=== PATIENT | female | born 1990 | race American Indian/Alaskan Native ===

== ENCOUNTER 2017-10-01 14:36 | Outpatient (CLI) | payer OTHER ==
--- NOTE | 2017-10-01 15:11 | XRay Report ---
CHEST 2 VIEWS INDICATION: Pneumothorax, unspecified. COMPARISON: None similar. FINDINGS: PA and lateral chest radiographs demonstrate normal cardiomediastinal silhouette. Clear lungs. Intact bones. Right nipple ornament. CONCLUSION: No acute disease in the chest. Thank you for the opportunity to participate in this patient's care.
--- NOTE | 2017-10-01 15:11 | XRay Report ---
RIGHT SHOULDER RADIOGRAPHS INDICATION: Pneumothorax, unspecified. COMPARISON: None similar at this institution. FINDINGS: Frontal and Y views of the right shoulder, 3 projections demonstrate normal humeral head contour, well positioned against the glenoid. Normal acromioclavicular joint. Preserved scapular contour. Normal visualized soft tissues, right ribs and lung. CONCLUSION: No acute right shoulder radiographic abnormality, as described. Thank you for the opportunity to participate in this patient's care.
== END 2017-10-01 14:37 | disposition home or self-care (01) ==
LOC: XRAY 14:36
DX: J93.9 Pneumothorax, unspecified (principal)
CPT/HCPCS: 71046

== ENCOUNTER 2018-11-08 09:30 | Emergency (ER) | payer SELFPAY ==
[2018-11-08 09:40] VITALS: BP 114/77
[2018-11-08 10:10] LABS: Basophils % (Auto) 0.7 % (0.0-1.8); Eosinophils # (Auto) 0.1 K/mm3 (0.0-0.4); Eosinophils % (Auto) 1.7 % (0.0-4.3); Hematocrit 37.4 % (30.3-42.9); Hemoglobin 12.2 gm/dl (10.1-14.3); Lymphocytes # (Auto) 2.1 K/mm3 (1.2-5.4); Lymphocytes % (Auto) 38.3 % (13.4-35.0); Mean Corpuscular HGB Conc 33 % (30-34); Mean Corpuscular Volume 86 fl (79-97); Monocytes # (Auto) 0.6 K/mm3 (0.0-0.8); Monocytes % (Auto) 11.2 % (0.0-7.3); Platelet Count 238 K/mm3 (140-440); Red Blood Count 4.34 M/mm3 (3.65-5.03); Red Cell Distribution Width 15.3 % (13.2-15.2)
--- NOTE | 2018-11-08 10:12 | Emergency Department Report ---
HPI - General Chief Complaint: Abdominal Pain Time Seen by Provider: 11/08/18 10:01 - HPI HPI: Pt is a pleasant 28-year-old who comes to the ER complaining of difficulty urinating and low back pain for one week. She states that she caught on Glucotrol and it concerned her when she saw so she came to the ER for evaluation. She has otherwise been not had sex with several years and she is concerned she is . She does have vaginal discharge or bleeding. Patient has no medical problems other than a previous pneumothorax associated with trauma. Mother and Father are alive and well. rx none pmh pneumothorax p trauma psh none ED Past Medical Hx - Past Medical History Previous Medical History?: No - Surgical History Past Surgical History?: Yes Additional Surgical History: collapsed lung - Social History Smoking Status: Light Tobacco Smoker Substance Use Type: Marijuana - Medications Home Medications: Home Medications Medication Instructions Recorded Confirmed Last Taken Type Ondansetron [Zofran Odt] 4 mg PO Q8HR PRN #12 tab.rapdis 11/08/18 Unknown Rx Sulfamethoxazole/Trimethoprim 1 each PO BID #6 tablet 11/08/18 Unknown Rx [Bactrim DS TAB] ED Review of Systems ROS: Stated complaint: FLANK PAIN/VOMITING Other details as noted in HPI Comment: All other systems reviewed and negative Physical Exam - Physical Exam Vital Signs: Vital Signs 11/08/18 09:37 Temperature 98.2 F Pulse Rate 104 H Respiratory 18 Rate Blood Pressure 114/77 [Left] O2 Sat by Pulse 99 Oximetry Physical Exam: WDWN patient in NAD VS per RN flow sheet Alert and oriented to person, place and time. S1-S2. No S3 or S4. No systolic or diastolic murmur. No JVD. No pitting edema. Lungs clear to auscultation bilaterally anteriorly and posteriorly. Abdomen soft nontender bowel sounds x4 no CVA tenderness no spine tenderness Moves all extremities well. Mood and affect appropriate. ED Course Vital Signs 11/08/18 09:37 Temperature 98.2 F Pulse Rate 104 H Respiratory 18 Rate Blood Pressure 114/77 [Left] O2 Sat by Pulse 99 Oximetry ED Medical Decision Making - Lab Data Result diagrams: 11/08/18 09:56 11/08/18 09:56 - Medical Decision Making Lab Results 11/08/18 11/08/18 11/08/18 Range/Units 09:56 09:56 10:32 WBC 5.4 (4.5-11.0) K/mm3 RBC 4.34 (3.65-5.03) M/mm3 Hgb 12.2 (10.1-14.3) gm/dl Hct 37.4 (30.3-42.9) % MCV 86 (79-97) fl MCH 28 (28-32) pg MCHC 33 (30-34) % RDW 15.3 H (13.2-15.2) % Plt Count 238 (140-440) K/mm3 Lymph % (Auto) 38.3 H (13.4-35.0) % [place] % (Auto) 11.2 H (0.0-7.3) % Eos % (Auto) 1.7 (0.0-4.3) % Baso % (Auto) 0.7 (0.0-1.8) % Lymph # 2.1 (1.2-5.4) K/mm3 [place] # 0.6 (0.0-0.8) K/mm3 Eos # 0.1 (0.0-0.4) K/mm3 Baso # 0.0 (0.0-0.1) K/mm3 Seg Neutrophils % 48.1 (40.0-70.0) % Seg Neutrophils # 2.6 (1.8-7.7) K/mm3 Sodium 139 (137-145) mmol/L Potassium 3.7 (3.6-5.0) mmol/L Chloride 101.6 (98-107) mmol/L Carbon Dioxide 26 (22-30) mmol/L Anion Gap 15 mmol/L BUN 14 (7-17) mg/dL Creatinine 0.7 (0.7-1.2) mg/dL Estimated GFR > 60 ml/min BUN/Creatinine Ratio 20 % Glucose 104 H (65-100) mg/dL Calcium 8.6 (8.4-10.2) mg/dL Total Bilirubin 0.20 (0.1-1.2) mg/dL AST 14 (5-40) units/L ALT 10 (7-56) units/L Alkaline Phosphatase 51 (35-129) units/L Total Protein 7.1 (6.3-8.2) g/dL Albumin 4.1 (3.9-5) g/dL Albumin/Globulin Ratio 1.4 % Lipase 30 (13-60) units/L Urine Color Yellow (Yellow) Urine Turbidity Slightly-cloudy (Clear) Urine pH 5.0 (5.0-7.0) Ur Specific Alpha 1.030 (1.003-1.030) Urine Protein <15 mg/dl (Negative) mg/dL Urine Glucose (UA) Neg (Negative) mg/dL Urine Ketones Neg (Negative) mg/dL Urine Blood Neg (Negative) Urine Nitrite Neg (Negative) Ur Reducing Substances Not Reportable Urine Bilirubin Neg (Negative) Urine Ictotest Not Reportable Urine Urobilinogen < 2.0 (<2.0) mg/dL Ur Leukocyte Esterase Sm (Negative) Urine WBC (Auto) 3.0 (0.0-6.0) /HPF Urine RBC (Auto) 3.0 (0.0-6.0) /HPF U Epithel Cells (Auto) 12.0 (0-13.0) /HPF Urine Mucus 3+ /HPF Urine HCG, Qual Negative (Negative) Vital Signs 11/08/18 09:37 Temperature 98.2 F Pulse Rate 104 H Respiratory 18 Rate Blood Pressure 114/77 [Left] O2 Sat by Pulse 99 Oximetry ua noted labs noted pt taking PO given complaints of dysuria and tr leuk will tx for uti and have her follow up with pcp to be sure this resolved. she has been encouraged to drink a lot of juan c er and hydrate well. dc home with dc plan of care. Critical care attestation.: If time is entered above; I have spent that time in minutes in the direct care of this critically ill patient, excluding procedure time. ED Disposition Clinical Impression: Dysuria Disposition: DC-01 TO HOME OR SELFCARE Is pt being admited?: No Does the pt Need Aspirin: No Condition: Stable Instructions: Urinary Tract Infection in Women (ED) Additional Instructions: DIET TOLERATED MEDS ORDERED TODAY IN ER FOLLOW INSTRUCTIONS ON THE BOTTLE FOLLOW UP PCP WITHIN 48 HOURS TO ENSURE YOU ARE GETTING BETTER ACTIVITY TOLERATED MOTRIN OR TYLENOL FOR PAIN OR FEVER RETURN TO THE ER FOR WORSENING SYMPTOMS NOT RELIEVED BY YOUR MEDICATIONS. DRINK A LOT OF WATER!! Prescriptions: Sulfamethoxazole/Trimethoprim [Bactrim DS TAB] 1 each PO BID #6 tablet Ondansetron [Zofran Odt] 4 mg PO Q8HR PRN #12 tab.rapdis PRN Reason: Nausea Referrals: CHIKIS KNIGHT MD [Primary Care Provider] - 3-5 Days Forms: Work/School Release Form(ED) Time of Disposition: 11:07
[2018-11-08 10:28] LABS: Alanine Aminotransferase 10 units/L (7-56); Albumin 4.1 g/dL (3.9-5); BUN/Creatinine Ratio 20; Blood Urea Nitrogen 14 mg/dL (7-17); Calcium 8.6 mg/dL (8.4-10.2); Hemolysis Index 11
[2018-11-08 11:00] LABS: Bilirubin,Urine NEG (Negative); Blood,Urine NEG (Negative); Color,Urine Yellow (Yellow); HCG Qualitative,Urine Negative (Negative); Mucus,Urine 3+ /HPF; Protein,Urine <15 mg/dL mg/dL (Negative); Urobilinogen,Urine < 2.0 mg/dL (<2.0)
[2018-11-08] MEDS ORDERED: LIDOCAINE VISCOUS 2% PO ONE (11:05)
[2018-11-08] MEDS ORDERED: ALUM-MAG HYDROX-SIMETH 200-200-20MG/5ML PO ONE (11:05)
== END 2018-11-08 11:25 | disposition home or self-care (01) ==
LOC: ED 09:30
DX: M54.5 Low back pain (principal); R30.0 Dysuria; F17.200 Nicotine dependence, unspecified, uncomplicated; F12.10 Cannabis abuse, uncomplicated; Z91.013 Allergy to seafood
CPT/HCPCS: 36415; 80053; 81001; 81025; 83690; 85025

== ENCOUNTER 2018-11-25 10:06 | Inpatient (IN) | payer SELFPAY ==
[2018-11-25] MEDS ORDERED: DECADRON PO ONE (10:45)
--- NOTE | 2018-11-25 10:50 | Emergency Department Report ---
HPI - General Chief Complaint: Upper Respiratory Infection Time Seen by Provider: 11/25/18 10:37 - HPI HPI: 28-year-old -[place] female presents to the emergency department with a four-day history of a dry cough. She says that over the past few nights she has been waking up short of breath with cold sweats. Last night she started having some right upper chest discomfort that worsens with breathing. She has tried some ibuprofen for her symptoms. She denies any fever, chills, nausea, vomiting, back pain or diaphoresis. She has a past medical history of a previous right-sided collapsed lung. No recent travel or sick contacts at home. She does not have a primary care physician. ED Past Medical Hx - Past Medical History Previous Medical History?: No - Surgical History Additional Surgical History: collapsed lung - Social History Smoking Status: Smoker, Current Status Unknown Substance Use Type: Alcohol, Marijuana - Medications Home Medications: Home Medications Medication Instructions Recorded Confirmed Last Taken Type Ondansetron [Zofran Odt] 4 mg PO Q8HR PRN #12 tab.rapdis 11/08/18 Unknown Rx Sulfamethoxazole/Trimethoprim 1 each PO BID #6 tablet 11/08/18 Unknown Rx [Bactrim DS TAB] ED Review of Systems ROS: Stated complaint: SOB/CHEST PAIN/COUGH Other details as noted in HPI Comment: All other systems reviewed and negative Constitutional: denies: chills, fever Eyes: denies: eye pain, vision change ENT: denies: ear pain, throat pain Respiratory: cough, shortness of breath, wheezing Cardiovascular: chest pain Gastrointestinal: denies: abdominal pain, vomiting Genitourinary: denies: dysuria, discharge Musculoskeletal: denies: back pain, arthralgia Skin: denies: rash, lesions Neurological: denies: headache, weakness Physical Exam - Physical Exam Vital Signs: Vital Signs 11/25/18 10:22 Temperature 98.6 F Pulse Rate 78 Respiratory 20 Rate Blood Pressure 129/80 O2 Sat by Pulse 99 Oximetry Physical Exam: GENERAL: The patient is well-developed well-nourished. HENT: Normocephalic. Atraumatic. Patient has moist mucous membranes. EYES: Extraocular motions are intact. Pupils equal reactive to light bilaterally. NECK: Supple. Trachea is midline. CHEST/LUNGS: Decreased lung sounds heard on the right side. An occasional dry cough heard during examination. No tachypnea or accessory muscle use. There is no respiratory distress noted. There is some reproducible right upper chest pain to palpation. No crepitus or deformity. HEART/CARDIOVASCULAR: Regular. There is no tachycardia. There is no murmur. ABDOMEN: Abdomen is soft, nontender. Patient has normal bowel sounds. There is no abdominal distention. SKIN: Skin is warm and dry. NEURO: The patient is awake, alert, and oriented. The patient is cooperative. The patient has no focal neurologic deficits. The patient has normal speech. MUSCULOSKELETAL: There is no tenderness or deformity. There is no evidence of acute injury. ED Course Vital Signs 11/25/18 10:22 Temperature 98.6 F Pulse Rate 78 Respiratory 20 Rate Blood Pressure 129/80 O2 Sat by Pulse 99 Oximetry ED Medical Decision Making - Radiology Data Radiology results: image reviewed interpreted by me: Chest x-ray shows a moderate right-sided pneumothorax without tension - Medical Decision Making Patient presented with a few days of waking up at night with shortness of breath and a dry cough and recently has started to develop some right-sided chest pains. A chest x-ray was done and came back showing a moderate right-sided pneumothorax without tension. The patient will be moved over to the main emergency Department side for chest tube placement and any other procedures and will most likely require admission. - Differential Diagnosis pneumothorax, bronchitis, pneumonia Critical Care Time: No Critical care attestation.: If time is entered above; I have spent that time in minutes in the direct care of this critically ill patient, excluding procedure time. ED Disposition Clinical Impression: Pneumothorax on right Disposition: -09 OP ADMIT IP TO THIS HOSP Is pt being admited?: Yes Condition: Stable Time of Disposition: 11:31
--- NOTE | 2018-11-25 11:26 | XRay Report ---
CHEST 2 VIEWS INDICATION / CLINICAL INFORMATION: cough. COMPARISON: None available. FINDINGS: SUPPORT DEVICES: None. HEART / MEDIASTINUM: No significant abnormality. LUNGS / PLEURA: There is a moderate right pneumothorax. There is mild volume loss in the right lung. There is no significant mediastinal shift. The left lung appears clear. ADDITIONAL FINDINGS: No significant additional findings. IMPRESSION: 1. Moderate right pneumothorax without radiographic evidence of tension. CRITICAL RESULT: Time of Discovery: 10:17 AM Time of Communication: 10:19 AM Licensed Practitioner Receiving Report: Dr. Epps Read Back Performed: Yes. Signer Name: Graham Simpson MD Signed: 11/25/2018 11:21 AM Workstation Name: [id number]
[2018-11-25] MEDS ORDERED: XYLOCAINE 1%/ EPI 1:100,000 INFILTRATI ONE (12:06)
[2018-11-25] MEDS ORDERED: KETALAR IV ONE (12:06)
--- NOTE | 2018-11-25 12:54 | Emergency Department Report ---
ED General Adult HPI - General Chief complaint: Upper Respiratory Infection Stated complaint: SOB/CHEST PAIN/COUGH Time Seen by Provider: 11/25/18 10:37 Source: patient Mode of arrival: Ambulatory Limitations: No Limitations - History of Present Illness Initial comments: Patient is a 28-year-old female who presents with shortness of breath has been going on for last couple days. Patient was transferred over to my care due to her having a right-sided spontaneous pneumothorax. Patient states that her shortness of breath is moderate is worse with exertion and nothing makes it better. - Related Data Previous Rx's Medication Instructions Recorded Last Taken Type Ondansetron [Zofran Odt] 4 mg PO Q8HR PRN #12 tab.rapdis 11/08/18 Unknown Rx Sulfamethoxazole/Trimethoprim 1 each PO BID #6 tablet 11/08/18 Unknown Rx [Bactrim DS TAB] Allergies Allergy/AdvReac Type Severity Reaction Status Date / Time clams Allergy Anaphylaxis Verified 11/25/18 14:30 mussels Allergy Anaphylaxis Verified 11/25/18 14:30 ED Review of Systems ROS: Stated complaint: SOB/CHEST PAIN/COUGH Other details as noted in HPI Constitutional: denies: chills, fever Eyes: denies: eye pain, vision change ENT: denies: ear pain, throat pain Respiratory: cough, shortness of breath, wheezing Cardiovascular: chest pain Gastrointestinal: denies: abdominal pain, vomiting Genitourinary: denies: dysuria, discharge Musculoskeletal: denies: back pain, arthralgia Skin: denies: rash, lesions Neurological: denies: headache, weakness ED Past Medical Hx - Past Medical History Previous Medical History?: No - Surgical History Additional Surgical History: collapsed lung - Social History Smoking Status: Smoker, Current Status Unknown Substance Use Type: Alcohol, Marijuana - Medications Home Medications: Home Medications Medication Instructions Recorded Confirmed Last Taken Type Ondansetron [Zofran Odt] 4 mg PO Q8HR PRN #12 tab.rapdis 11/08/18 Unknown Rx Sulfamethoxazole/Trimethoprim 1 each PO BID #6 tablet 11/08/18 Unknown Rx [Bactrim DS TAB] ED Physical Exam - General Limitations: No Limitations General appearance: alert, in no apparent distress - Head Head exam: Present: atraumatic, normocephalic - Eye Eye exam: Present: normal appearance - ENT ENT exam: Present: mucous membranes moist - Neck Neck exam: Present: normal inspection - Respiratory Respiratory exam: Present: other (diminshed on right side ). Absent: respiratory distress - Cardiovascular Cardiovascular Exam: Present: regular rate, normal rhythm. Absent: systolic mu rmur, diastolic murmur, rubs, gallop - GI/Abdominal GI/Abdominal exam: Present: soft, normal bowel sounds - Extremities Exam Extremities exam: Present: normal inspection - Back Exam Back exam: Present: normal inspection - Neurological Exam Neurological exam: Present: alert, oriented X3 - Psychiatric Psychiatric exam: Present: normal affect, normal mood - Skin Skin exam: Present: warm, dry, intact, normal color. Absent: rash ED Course Vital Signs 11/25/18 11/25/18 11/25/18 10:22 12:36 13:36 Temperature 98.6 F Pulse Rate 78 74 74 Pulse Rate [Pre -Procedure] Respiratory 20 17 17 Rate Respiratory Rate [Pre- Procedure] Blood Pressure 129/80 Blood Pressure [Pre-Procedure] Blood Pressure 124/63 122/70 [Right] O2 Sat by Pulse 99 100 100 Oximetry O2 Sat by Pulse Oximetry [Pre- Procedure] 11/25/18 11/25/18 11/25/18 14:11 14:20 14:28 Temperature Pulse Rate 60 99 H Pulse Rate [Pre 74 -Procedure] Respiratory 17 26 H Rate Respiratory 17 Rate [Pre- Procedure] Blood Pressure Blood Pressure 142/66 [Pre-Procedure] Blood Pressure 133/90 135/85 [Right] O2 Sat by Pulse 99 100 Oximetry O2 Sat by Pulse 99 Oximetry [Pre- Procedure] - Chest Tube Chest Tube Location: fifth interspace Size of Pashto Tube (cm): 9 Chest Tube Procedure: sterile drapes applied Anesthesia: 1% Lidocaine w/ Epi Volume Anesthetic (ccs): 20 Flannery of Air Dickinson: Yes Number of Attempts: 2 Tube Drainage: see nurses notes Tube Sutured to Skin: Yes Post Procedure CXR?: Yes - Moderate Sedation Indications: other (chest tube) ASA Class: I Mallampati Airway Score: 1 Time of Last PO Intake: 00:00 Ketamine: IV Ketamine Dose: 130 Complications: none Interventions: oxygen applied Patient Tolerated Procedure: well ED Medical Decision Making - Lab Data Result diagrams: 11/25/18 13:17 11/25/18 12:48 Lab Results 11/25/18 11/25/18 11/25/18 Range/Units 12:48 12:48 13:17 WBC 7.0 (4.5-11.0) K/mm3 RBC 4.09 (3.65-5.03) M/mm3 Hgb 11.6 (10.1-14.3) gm/dl Hct 35.3 (30.3-42.9) % MCV 86 (79-97) fl MCH 28 (28-32) pg MCHC 33 (30-34) % RDW 15.7 H (13.2-15.2) % Plt Count 187 (140-440) K/mm3 Lymph % (Auto) 21.2 (13.4-35.0) % [place] % (Auto) 9.9 H (0.0-7.3) % Eos % (Auto) 0.5 (0.0-4.3) % Baso % (Auto) 0.3 (0.0-1.8) % Lymph # 1.5 (1.2-5.4) K/mm3 [place] # 0.7 (0.0-0.8) K/mm3 Eos # 0.0 (0.0-0.4) K/mm3 Baso # 0.0 (0.0-0.1) K/mm3 Seg Neutrophils % 68.1 (40.0-70.0) % Seg Neutrophils # 4.8 (1.8-7.7) K/mm3 PT 12.6 (12.2-14.9) Sec. INR 0.97 (0.87-1.13) APTT 23.5 L (24.2-36.6) Sec. Sodium 138 (137-145) mmol/L Potassium 3.6 (3.6-5.0) mmol/L Chloride 104.6 (98-107) mmol/L Carbon Dioxide 19 L (22-30) mmol/L Anion Gap 18 mmol/L BUN 10 (7-17) mg/dL Creatinine 0.7 (0.7-1.2) mg/dL Estimated GFR > 60 ml/min BUN/Creatinine Ratio 14 % Glucose 86 (65-100) mg/dL Calcium 8.9 (8.4-10.2) mg/dL - Radiology Data Radiology results: report reviewed, image reviewed Chest x-ray: Shows moderate right-sided pneumothorax Chest x-ray after chest tube placement: Shows well aerated lung and Heimlich valve chest tube was small apical right pneumothorax - Medical Decision Making Chief Medical diagnosis: Pneumothorax Branch medical diagnosis: Pulmonary bleb bronchospasm I will place chest tube PROCEDURAL sedation BLOOD work and I will admit the patient to the hospitalist service. Discussed plan with patient and patient agrees with plan. Critical care attestation.: If time is entered above; I have spent that time in minutes in the direct care of this critically ill patient, excluding procedure time. ED Disposition Clinical Impression: Pneumothorax on right Disposition: DC-09 OP ADMIT IP TO THIS HOSP Is pt being admited?: Yes Does the pt Need Aspirin: No Condition: Stable Referrals: CHIKIS KNIGHT MD [Primary Care Provider] - 3-5 Days
[2018-11-25 13:11] LABS: INR 0.97 (0.87-1.13)
[2018-11-25 13:12] LABS: Partial Thromboplastin Time 23.5 Sec. (24.2-36.6)
[2018-11-25 13:14] LABS: BUN/Creatinine Ratio 14; Blood Urea Nitrogen 10 mg/dL (7-17); Calcium 8.9 mg/dL (8.4-10.2); Hemolysis Index 23
[2018-11-25 13:50] LABS: Basophils % (Auto) 0.3 % (0.0-1.8); Eosinophils % (Auto) 0.5 % (0.0-4.3); Hematocrit 35.3 % (30.3-42.9); Hemoglobin 11.6 gm/dl (10.1-14.3); Lymphocytes # (Auto) 1.5 K/mm3 (1.2-5.4); Lymphocytes % (Auto) 21.2 % (13.4-35.0); Mean Corpuscular HGB Conc 33 % (30-34); Mean Corpuscular Volume 86 fl (79-97); Monocytes # (Auto) 0.7 K/mm3 (0.0-0.8); Monocytes % (Auto) 9.9 % (0.0-7.3); Platelet Count 187 K/mm3 (140-440); Red Blood Count 4.09 M/mm3 (3.65-5.03); Red Cell Distribution Width 15.7 % (13.2-15.2)
[2018-11-25] MEDS ORDERED: ZOFRAN ONE ×2 (14:17→14:25)
[2018-11-25] MEDS ORDERED: MORPHINE ONE (14:25)
[2018-11-25] MEDS ORDERED: NACL 0.9% 1000 ML 1,000 ML ONE (14:25)
[2018-11-25] MEDS ORDERED: ATIVAN ONE (14:38)
--- NOTE | 2018-11-25 15:52 | XRay Report ---
CHEST 1 VIEW INDICATION: Shortness of breath, recent right chest tube placement. Follow-up right pneumothorax. COMPARISON: Earlier today at 1105 hours FINDINGS: Support devices: A right Heimlich chest tube has been inserted since the previous exam which terminat es at the level of the right hilum Heart: Within normal limits. Lungs/Pleura: A tiny residual right apical pneumothorax is identified measuring 4-5 mm in thickness. Otherwise the lungs are well-aerated. Minimal linear scarring or atelectasis in the right upper lobe is noted. Additional findings: None. IMPRESSION: 1. Right chest tube placement as described. Tiny right apical pneumothorax measuring 4-5 mm thickness . Signer Name: Hollis Jo Jr, MD Signed: 11/25/2018 3:48 PM Workstation Name: [id number]
[2018-11-25] MEDS ORDERED: NACL 0.9% 1000 ML 1,000 ML IV ONE (16:00)
[2018-11-25] MEDS ORDERED: TORADOL IV ONE (17:23)
[2018-11-25] MEDS ORDERED: BENADRYL IV ONE (17:33)
[2018-11-25] MEDS ORDERED: REGLAN IV ONE (17:33)
[2018-11-25] MEDS ORDERED: LOVENOX SUB-Q SCH (19:00)
[2018-11-25] MEDS: LOVENOX SUB-Q SCH (19:43)
[2018-11-25] MEDS ORDERED: ZOFRAN IV PRN (21:18)
[2018-11-25] MEDS ORDERED: SODIUM CHLORIDE FLUSH SYRINGE 10 ML IV PRN (21:18)
[2018-11-25] MEDS ORDERED: DILAUDID IV PRN (21:18)
--- NOTE | 2018-11-25 21:18 | History and Physical Report ---
History of Present Illness Date of examination: 11/25/18 Date of admission: 11/25/18 18:02 History of present illness: Patient is a 28-year-old female who presents with shortness of breath has been going on for last couple days. Patient was transferred over to my care due to her having a right-sided spontaneous pneumothorax. Patient states that her shortness of breath is moderate is worse with exertion and nothing makes it better. - Related Data Previous Rx's Medication Instructions Recorded Last Taken Type Ondansetron [Zofran Odt] 4 mg PO Q8HR PRN #12 tab.rapdis 11/08/18 Unknown Rx Sulfamethoxazole/Trimethoprim 1 each PO BID #6 tablet 11/08/18 Unknown Rx [Bactrim DS TAB] Allergies Allergy/AdvReac Type Severity Reaction Status Date / Time clams Allergy Anaphylaxis Verified 11/25/18 14:30 mussels Allergy Anaphylaxis Verified 11/25/18 14:30 ED Review of Systems ROS: Stated complaint: SOB/CHEST PAIN/COUGH Other details as noted in HPI Constitutional: denies: chills, fever Eyes: denies: eye pain, vision change ENT: denies: ear pain, throat pain Respiratory: cough, shortness of breath, wheezing Cardiovascular: chest pain Gastrointestinal: denies: abdominal pain, vomiting Genitourinary: denies: dysuria, discharge Musculoskeletal: denies: back pain, arthralgia Skin: denies: rash, lesions Neurological: denies: headache, weakness ED Past Medical Hx - Past Medical History Previous Medical History?: No - Surgical History Additional Surgical History: collapsed lung - Social History Smoking Status: Smoker, Current Status Unknown Substance Use Type: Alcohol, Marijuana - Medications Home Medications: Home Medications Medication Instructions Recorded Confirmed Last Taken Type Ondansetron [Zofran Odt] 4 mg PO Q8HR PRN #12 tab.rapdis 11/08/18 Unknown Rx Sulfamethoxazole/Trimethoprim 1 each PO BID #6 tablet 11/08/18 Unknown Rx [Bactrim DS TAB] Medications and Allergies Allergies Allergy/AdvReac Type Severity Reaction Status Date / Time clams Allergy Anaphylaxis Verified 11/25/18 14:30 mussels Allergy Anaphylaxis Verified 11/25/18 14:30 Home Medications Medication Instructions Recorded Confirmed Last Taken Type Ondansetron [Zofran Odt] 4 mg PO Q8HR PRN #12 tab.rapdis 11/08/18 Unknown Rx Sulfamethoxazole/Trimethoprim 1 each PO BID #6 tablet 11/08/18 Unknown Rx [Bactrim DS TAB] Active Meds: Active Medications Enoxaparin Sodium (Lovenox) 30 mg SUB-Q QDAY REBECCA Last Admin: 11/25/18 19:43 Dose: 30 mg Documented by: Exam - Constitutional Vitals: Temp Pulse Resp BP Pulse Ox 98.6 F 58 L 17 110/66 100 11/25/18 10:22 11/25/18 18:46 11/25/18 18:46 11/25/18 18:46 11/25/18 18:46 Results - Labs CBC & Chem 7: 11/25/18 13:17 11/25/18 12:48 Labs: Laboratory Last Values WBC 7.0 K/mm3 (4.5-11.0) 11/25/18 13:17 RBC 4.09 M/mm3 (3.65-5.03) 11/25/18 13:17 Hgb 11.6 gm/dl (10.1-14.3) 11/25/18 13:17 Hct 35.3 % (30.3-42.9) 11/25/18 13:17 MCV 86 fl (79-97) 11/25/18 13:17 MCH 28 pg (28-32) 11/25/18 13:17 MCHC 33 % (30-34) 11/25/18 13:17 RDW 15.7 % (13.2-15.2) H 11/25/18 13:17 Plt Count 187 K/mm3 (140-440) 11/25/18 13:17 Lymph % (Auto) 21.2 % (13.4-35.0) 11/25/18 13:17 [place] % (Auto) 9.9 % (0.0-7.3) H 11/25/18 13:17 Eos % (Auto) 0.5 % (0.0-4.3) 11/25/18 13:17 Baso % (Auto) 0.3 % (0.0-1.8) 11/25/18 13:17 Lymph # 1.5 K/mm3 (1.2-5.4) 11/25/18 13:17 [place] # 0.7 K/mm3 (0.0-0.8) 11/25/18 13:17 Eos # 0.0 K/mm3 (0.0-0.4) 11/25/18 13:17 Baso # 0.0 K/mm3 (0.0-0.1) 11/25/18 13:17 Seg Neutrophils % 68.1 % (40.0-70.0) 11/25/18 13:17 Seg Neutrophils # 4.8 K/mm3 (1.8-7.7) 11/25/18 13:17 PT 12.6 Sec. (12.2-14.9) 11/25/18 12:48 INR 0.97 (0.87-1.13) 11/25/18 12:48 APTT 23.5 Sec. (24.2-36.6) L 11/25/18 12:48 Sodium 138 mmol/L (137-145) 11/25/18 12:48 Potassium 3.6 mmol/L (3.6-5.0) 11/25/18 12:48 Chloride 104.6 mmol/L (98-107) 11/25/18 12:48 Carbon Dioxide 19 mmol/L (22-30) L 11/25/18 12:48 18 mmol/L 11/25/18 12:48 BUN 10 mg/dL (7-17) 11/25/18 12:48 0.7 mg/dL (0.7-1.2) 11/25/18 12:48 Estimated GFR > 60 ml/min 11/25/18 12:48 14 % 11/25/18 12:48 Glucose 86 mg/dL (65-100) 11/25/18 12:48 Calcium 8.9 mg/dL (8.4-10.2) 11/25/18 12:48
[2018-11-25] MEDS ORDERED: NACL 0.9% 1000 ML 1,000 ML IV SCH (22:00)
--- NOTE | 2018-11-25 23:06 | XRay Report ---
CHEST 1 VIEW 9:40 PM INDICATION / CLINICAL INFORMATION: Chest tube removal. COMPARISON: Earlier today at 3:17 PM. FINDINGS: SUPPORT DEVICES: The right pleural catheter has been removed. HEART / MEDIASTINUM: Unchanged. LUNGS / PLEURA: Subsegmental atelectasis in the right mid lung has cleared. A very tiny right apical pneumothorax is smaller. ADDITIONAL FINDINGS: No significant additional findings. IMPRESSION: Tiny right apical pneumothorax has decreased in size following right pleural catheter rem oval. Signer Name: Bulmaro Harkins MD Signed: 11/25/2018 11:02 PM Workstation Name: [id number]
[2018-11-25] MEDS: PEPCID PO SCH (23:10)
[2018-11-25] MEDS: SODIUM CHLORIDE FLUSH SYRINGE 10 ML IV SCH (23:10)
--- NOTE | 2018-11-26 03:38 | Event Note ---
Date: 11/25/18 See H/p inreports Rt Spontaneous Pneumothorax Second Episode Nicotine Dependence
--- NOTE | 2018-11-26 04:11 | History and Physical Report ---
CHIEF COMPLAINT: Shortness of breath for 2 days. HISTORY OF PRESENT ILLNESS: This is a 28-year-old female who presents to the Emergency Room with shortness of breath for last 2 days. The patient had a spontaneous pneumothorax a few months ago. Was treated at a different hospital. The patient is a smoker. The patient has a tendency to cough recurrently because of smoking and recurrent bronchitis. The patient was found to have spontaneous pneumothorax in the ER and the patient had a chest tube placed. No fever or chills. Cough nonproductive. PAST MEDICAL HISTORY: Spontaneous pneumothorax x 1 a few months ago. No hypertension, no diabetes. PAST SURGICAL HISTORY: Chest tube and collapsed lung on the right side secondary to spontaneous pneumothorax few months ago. SOCIAL HISTORY: Smokes over half a pack a day. Alcohol and marijuana on a regular basis. FAMILY HISTORY: Hypertension. REVIEW OF SYSTEMS: Significant for shortness of breath on minimal exertion and sometimes at rest. Otherwise, review of systems negative. PHYSICAL EXAMINATION: GENERAL: Young female, cooperative during examination. VITAL SIGNS: Blood pressure is 96/51, temperature is 98.3, pulse is 64, respiratory rate is 22. HEENT: Unremarkable. NECK: Supple, no lymphadenopathy, no thyromegaly. Accessory muscles of respiration are not prominent. LUNGS: Clear to auscultation and percussion. Decreased air entry on the right side. CARDIOVASCULAR: S1, S2 heard. No gallop, no murmur, no rub. Apical impulse in left fifth intercostal space and midclavicular line. ABDOMEN: Soft and benign. No hepatosplenomegaly, no guarding, no rigidity. Hernial orifices are normal. EXTREMITIES: Good pedal pulses. No pedal edema. CENTRAL NERVOUS SYSTEM: Alert and oriented x 4, nonfocal exam. LABORATORY DATA: CBC is normal. Electrolytes are normal. DIAGNOSTIC DATA: Chest x-ray shows some moderate right pneumothorax without radiographic evidence of tension pneumothorax. ASSESSMENT AND PLAN: 1. Spontaneous right pneumothorax. Chest tube was inserted. The patient is comfortable with the chest tube. The patient to be admitted for 48 hours observation and removal of chest tube depending on the resolution of the pneumothorax. Pulmonary consult requested. 2. Nicotine dependence. Nicoderm patch initiated. 3. Deep venous thrombosis prophylaxis, Lovenox 40 mg subcutaneous daily and GI prophylaxis. JOB# [id number] VSM/NTS MTDD
[2018-11-26 05:26] LABS: Albumin 3.6 g/dL (3.9-5); BUN/Creatinine Ratio 19; Blood Urea Nitrogen 13 mg/dL (7-17); Calcium 8.1 mg/dL (8.4-10.2); Hemolysis Index 2
[2018-11-26 05:36] LABS: Alanine Aminotransferase < 5 units/L (7-56)
[2018-11-26] MEDS: PERCOCET 5/325 PO PRN ×3 (06:00→21:29)
[2018-11-26] MEDS: LOVENOX SUB-Q SCH (09:03)
[2018-11-26] MEDS: SODIUM CHLORIDE FLUSH SYRINGE 10 ML IV SCH ×2 (09:04→21:34)
[2018-11-26] MEDS: PEPCID PO SCH ×2 (09:04→21:29)
[2018-11-26] MEDS: TYLENOL PO PRN (09:14)
--- NOTE | 2018-11-26 10:09 | XRay Report ---
CHEST 1 VIEW 9:40 AM INDICATION / CLINICAL INFORMATION: Follow-up pneumothorax. COMPARISON: Yesterday. FINDINGS: SUPPORT DEVICES: None. HEART / MEDIASTINUM: Borderline cardiomegaly. LUNGS / PLEURA: Low lung volumes without acute abnormality. Tiny right apical pneumothorax is no long er appreciated. ADDITIONAL FINDINGS: Right nipple piercing. IMPRESSION: Tiny right apical pneumothorax is no longer identified. Signer Name: Bulmaro Harkins MD Signed: 11/26/2018 10:05 AM Workstation Name: [id number]
--- NOTE | 2018-11-26 13:06 | Consultation ---
History of Present Illness Consult date: 11/26/18 Requesting physician: MARGI ABRAHAM Reason for consult: pneumothorax History of present illness: PULMONARY/CCM CONSULT NOTE (Full dictation # [id number]) Please see dictated notes for full details - get CT chest to r/o Apical blebs or significant cystic disease Medications and Allergies Allergies Allergy/AdvReac Type Severity Reaction Status Date / Time clams Allergy Anaphylaxis Verified 11/25/18 14:30 mussels Allergy Anaphylaxis Verified 11/25/18 14:30 Active Meds: Active Medications Acetaminophen (Tylenol) 650 mg PO Q4H PRN PRN Reason: Pain MILD(1-3)/Fever >100.5/LIVE Last Admin: 11/26/18 09:14 Dose: 650 mg Documented by: Enoxaparin Sodium (Lovenox) 30 mg SUB-Q QDAY [facility] Last Admin: 11/26/18 09:03 Dose: 30 mg Documented by: Famotidine (Pepcid) 20 mg PO BID [facility] Last Admin: 11/26/18 09:04 Dose: 20 mg Documented by: Hydromorphone HCl (Dilaudid) 0.5 mg IV Q3H PRN PRN Reason: Pain , Severe (7-10) Last Admin: 11/25/18 23:47 Dose: 0.5 mg Documented by: Sodium Chloride (Nacl 0.9% 1000 Ml) 1,000 mls @ 75 mls/hr IV DIRECT REBECCA Last Admin: 11/25/18 23:47 Dose: 75 mls/hr Documented by: Ondansetron HCl (Zofran) 4 mg IV Q8H PRN PRN Reason: Nausea And Vomiting Last Admin: 11/26/18 00:47 Dose: 4 mg Documented by: Oxycodone/Acetaminophen (Percocet 5/325) 1 tab PO Q6H PRN PRN Reason: Pain, Moderate (4-6) Last Admin: 11/26/18 06:00 Dose: 1 tab Documented by: Sodium Chloride (Sodium Chloride Flush Syringe 10 Ml) 10 ml IV BID [facility] Last Admin: 11/26/18 09:04 Dose: 10 ml Documented by: Sodium Chloride (Sodium Chloride Flush Syringe 10 Ml) 10 ml IV PRN PRN PRN Reason: LINE FLUSH Physical Examination Vital signs: Vital Signs Temp Pulse Resp BP Pulse Ox 98.6 F 78 20 129/80 99 07/05/19 10:22 11/25/18 10:22 11/25/18 10:22 11/25/18 10:22 11/25/18 10:22 Results - Laboratory Findings CBC and BMP: 11/25/18 13:17 11/26/18 04:24 PT/INR, D-dimer PT 12.6 Sec. (12.2-14.9) 11/25/18 12:48 INR 0.97 (0.87-1.13) 11/25/18 12:48 Abnormal lab findings: Abnormal Labs 11/25/18 11/25/18 11/25/18 12:48 12:48 13:17 RDW 15.7 H [place] % (Auto) 9.9 H APTT 23.5 L Carbon Dioxide 19 L Glucose Calcium ALT Albumin 11/26/18 04:24 RDW [place] % (Auto) APTT Carbon Dioxide Glucose 103 H Calcium 8.1 L ALT < 5 L Albumin 3.6 L
--- NOTE | 2018-11-26 13:08 | Progress Note ---
Assessment and Plan Assessment and plan: Spontaneous PTX. Pt had chest tube that was placed but inadvertently pulled out after admission. -F/U repeat CXR and await Pulm consultation Tobacco abuse. Pt will be counseled on cessation prior to d/c Marijuana use. Daily user History Interval history: Patient is a 28-year-old female who presented with shortness of breath has been going on for last couple days [employer]. Patient admitted with dx right-sided spontaneous pneumothorax. Hospitalist Physical - Constitutional Vitals: Temp Pulse Resp BP Pulse Ox 98.5 F 52 L 20 103/61 100 11/26/18 11:32 11/26/18 11:32 11/26/18 11:32 11/26/18 11:32 11/26/18 11:32 General appearance: Present: no acute distress, well-nourished - EENT Eyes: Present: PERRL, EOM intact ENT: hearing intact, clear oral mucosa, dentition normal - Neck Neck: Present: supple, normal ROM - Respiratory Respiratory effort: normal Respiratory: bilateral: CTA - Cardiovascular Rhythm: regular Heart Sounds: Present: S1 & S2. Absent: gallop, rub - Extremities Extremities: no ischemia, No edema, Full ROM - Abdominal General gastrointestinal: soft, non-tender, non-distended, normal bowel sounds - Integumentary Integumentary: Present: clear, warm, dry - Neurologic Neurologic: CNII-XII intact, moves all extremities Results - Labs CBC & Chem 7: 11/25/18 13:17 11/26/18 04:24 Labs: Laboratory Last Values WBC 7.0 K/mm3 (4.5-11.0) 11/25/18 13:17 RBC 4.09 M/mm3 (3.65-5.03) 11/25/18 13:17 Hgb 11.6 gm/dl (10.1-14.3) 11/25/18 13:17 Hct 35.3 % (30.3-42.9) 11/25/18 13:17 MCV 86 fl (79-97) 11/25/18 13:17 MCH 28 pg (28-32) 11/25/18 13:17 MCHC 33 % (30-34) 11/25/18 13:17 RDW 15.7 % (13.2-15.2) H 11/25/18 13:17 Plt Count 187 K/mm3 (140-440) 11/25/18 13:17 Lymph % (Auto) 21.2 % (13.4-35.0) 11/25/18 13:17 Ray % (Auto) 9.9 % (0.0-7.3) H 11/25/18 13:17 Eos % (Auto) 0.5 % (0.0-4.3) 11/25/18 13:17 Baso % (Auto) 0.3 % (0.0-1.8) 11/25/18 13:17 Lymph # 1.5 K/mm3 (1.2-5.4) 11/25/18 13:17 Ray # 0.7 K/mm3 (0.0-0.8) 11/25/18 13:17 Eos # 0.0 K/mm3 (0.0-0.4) 11/25/18 13:17 Baso # 0.0 K/mm3 (0.0-0.1) 11/25/18 13:17 Seg Neutrophils % 68.1 % (40.0-70.0) 11/25/18 13:17 Seg Neutrophils # 4.8 K/mm3 (1.8-7.7) 11/25/18 13:17 PT 12.6 Sec. (12.2-14.9) 11/25/18 12:48 INR 0.97 (0.87-1.13) 11/25/18 12:48 APTT 23.5 Sec. (24.2-36.6) L 11/25/18 12:48 Sodium 140 mmol/L (137-145) 11/26/18 04:24 Potassium 4.0 mmol/L (3.6-5.0) 11/26/18 04:24 Chloride 106.0 mmol/L (98-107) 11/26/18 04:24 Carbon Dioxide 24 mmol/L (22-30) 11/26/18 04:24 14 mmol/L 11/26/18 04:24 BUN 13 mg/dL (7-17) 11/26/18 04:24 0.7 mg/dL (0.7-1.2) 11/26/18 04:24 Estimated GFR > 60 ml/min 11/26/18 04:24 19 % 11/26/18 04:24 Glucose 103 mg/dL (65-100) H 11/26/18 04:24 4.7 % (4-6) 11/25/18 13:17 Calcium 8.1 mg/dL (8.4-10.2) L 11/26/18 04:24 0.40 mg/dL (0.1-1.2) 11/26/18 04:24 AST 12 units/L (5-40) 11/26/18 04:24 ALT < 5 units/L (7-56) L 11/26/18 04:24 47 units/L (35-129) 11/26/18 04:24 6.6 g/dL (6.3-8.2) 11/26/18 04:24 3.6 g/dL (3.9-5) L 11/26/18 04:24 1.2 % 11/26/18 04:24 Active Medications - Current Medications Current Medications: Generic Name Dose Route Start Last Admin Trade Name Freq PRN Reason Stop Dose Admin Acetaminophen 650 mg 11/25/18 21:18 11/26/18 09:14 Tylenol PO 650 mg Q4H PRN Administration Pain MILD(1-3)/Fever >100.5/LIVE Enoxaparin Sodium 30 mg 11/25/18 18:30 11/26/18 09:03 Lovenox SUB-Q 30 mg QDAY REBECCA Administration Famotidine 20 mg 11/25/18 22:00 11/26/18 09:04 Pepcid PO 20 mg BID REBECCA Administration Hydromorphone HCl 0.5 mg 11/25/18 21:18 11/25/18 23:47 Dilaudid IV 0.5 mg Q3H PRN Administration Pain , Severe (7-10) Sodium Chloride 1,000 mls @ 75 mls/hr 11/25/18 22:00 11/25/18 23:47 Nacl 0.9% 1000 Ml IV 75 mls/hr DIRECT REBECCA Administration Ondansetron HCl 4 mg 11/25/18 21:18 11/26/18 00:47 Zofran IV 4 mg Q8H PRN Administration Nausea And Vomiting Oxycodone/Acetaminophen 1 tab 11/25/18 21:18 11/26/18 06:00 Percocet 5/325 PO 1 tab Q6H PRN Administration Pain, Moderate (4-6) Sodium Chloride 10 ml 11/25/18 22:00 11/26/18 09:04 Sodium Chloride Flush Syringe 10 Ml IV 10 ml BID REBECCA Administration Sodium Chloride 10 ml 11/25/18 21:18 Sodium Chloride Flush Syringe 10 Ml IV PRN PRN LINE FLUSH
--- NOTE | 2018-11-26 17:13 | Cat Scan Report ---
CT chest without contrast INDICATION : Pneumothorax; Apical blebs or cystic disease. History of collapsed lung TECHNIQUE: Axial imaging performed through the chest without the use of intravenous contrast. All C T scans at this location are performed using CT dose reduction for ALARA by means of automated exposu re control. COMPARISON: Chest x-ray from earlier today FINDINGS: The heart and great vessels appear unremarkable with no pathologic mediastinal adenopathy. Limited imaging of the upper abdomen shows nothing acute. There are minimal degenerative changes in the spine with no acute osseous abnormality. There is mild motion artifact. In the right apex there is a tiny bleb versus residua of old pneumotho rax as seen on axial image 13 and sagittal image 93. The lungs are otherwise clear. IMPRESSION: Tiny bleb versus residual of old pneumothorax in the right apex as above. Otherwise clear lungs and normal heart size. Signer Name: Pola Llanos MD Signed: 11/26/2018 5:08 PM Workstation Name: [id number]
--- NOTE | 2018-11-27 00:43 | Consultation ---
CONSULTING PHYSICIAN: Dr. Braga. REASON FOR CONSULTATION: Pneumothorax spontaneous. CHIEF COMPLAINT AND HISTORY OF PRESENT ILLNESS: The patient is a 28-year-old -Portuguese female with past medical history significant for a prior episode of a collapsed lung. She said happen I believe about a couple of years ago. She was seen at [facility]. According to her, she does think she did have a CT scan of her chest also done at that time. She came into the Emergency Room after complaining about 4-5 days of a dry cough and increasing shortness of breath usually nocturnal. She started to have some chest pain, right upper chest pain on the day of presentation. Evaluation in the Emergency Room revealed a spontaneous pneumothorax on the right side. She denied any fevers, chills, nausea, vomiting or back pain. She denied any trauma to her chest. A chest tube was placed. Unfortunately, it got dislodged last night. A post-procedure chest x-ray showed only minimal apical pneumothorax at that time. We are asked to assist with management. When I stopped by to see her, she was resting. She was actually opened the room, walking around. She admits to about a 10+ pack year tobacco smoking history, states she started smoking when she was 10 years old. She denies any other past medical history. She denies a history of asthma. She does mention that she has never been , but really has not been trying to be. She denies any occupational exposures to any known pulmonary toxins. As far as she knows, there are no congenital diseases that run in the family. She does tell me that she has been told she has cysts everywhere. She was told she had a cyst under her jaw, a cyst in what appears to be the right upper quadrant region. The nature of this cyst is unclear. Really is much of the history of presentation as I have. PAST MEDICAL HISTORY: Spontaneous pneumothorax. PAST SURGICAL HISTORY: She had treatment for a collapsed lung in the past, not sure if it is the same lung. MEDICATIONS: She was on at the time I stopped by to see were reviewed, pertinent medications include the following: Tylenol 650 mg p.o. q. 4 hours p.r.n. mild pain, Lovenox 30 mg subcutaneous daily, Pepcid 20 mg p.o. b.i.d., Dilaudid 0.5 mg IV q. 3 hours p.r.n. severe pain, Zofran 4 mg IV q. 8 hours p.r.n. nausea and vomiting, Percocet 5/325 mg 1 tablet p.o. q 6 hours for moderate pain. ALLERGIES: CLAMS AND MUSSELS. Nature of this allergy is unknown. DIET: Well-built lady. Denies acute weight loss or gain in the preceding few weeks to months. FAMILY AND SOCIAL HISTORY: Lives in the community, has about a [id number] tobacco smoking history, continues to smoke. She also admits to intermittent alcohol and marijuana use. Denies illicit drug use or abuse, otherwise. FAMILY HISTORY: Otherwise noncontributory. There is a family history of asthma. REVIEW OF SYSTEMS: No loss of consciousness. No new onset seizures. No new onset focal weakness. No gross hematochezia or melena. No gross hematuria. She recently had an episode of dysuria about actually 2-3 weeks ago. No hematemesis. No hemoptysis. She denies heat or cold intolerance. Denies polydipsia or polyuria. Denies any history of seizures. Denies any history of any nodular type lesions on her body as may be related to the neurofibromatosis complex. Complete 13-system review of systems obtained. Pertinent positives and/or negatives as in body of history above, otherwise noncontributory. PHYSICAL EXAMINATION: VITAL SIGNS: At presentation, she was afebrile, temperature 98.6 degrees Fahrenheit, pulse of 78, respiratory rate of 20, blood pressure 129/80 and O2 sats were 99%, inspired oxygen concentration at that time was not recorded. When I stopped by to see her, O2 sats were 99% on room air. GENERAL: She is a well-built young -Portuguese female. Normocephalic, atraumatic, talking to me in full sentences without significant respiratory discomfort at rest. HEAD, EYES, EARS, NOSE AND THROAT: She is anicteric. No conjunctival erythema. Oropharynx is moist, Mallampati #2 oropharynx, no thyromegaly, no gross jugular venous distention, grossly, no palpable nodes in the supraclavicular or submandibular lymph node chains. I do not feel this cyst she mentions under her mandibles. LUNGS: Auscultation of both lung lisa reveals to be a good bilateral breath sounds in all zones of her lungs. HEART: Heart sounds 1 and 2 are heard, regular rate and rhythm at time of my evaluation. No rubs or murmurs. ABDOMEN: Soft, full, bowel sounds are positive, nontender. No palpable hepatosplenomegaly. EXTREMITIES: Without overt digital clubbing or cyanosis. No pedal edema. Pedal pulses are palpable and strong bilaterally. NEUROLOGIC: Pupils equal, round, about 4 mm, reactive to light. Extraocular muscle movements are intact. She moves all 4 extremities spontaneously. LABORATORY DATA: From my review are as follows: White cell count 7000, hemoglobin 11.6, hematocrit 35.3 and platelet count 187. No manual differential. INR is within normal limits. Serum sodium is 138, potassium 3.6, chloride 105, bicarbonate 19. It is now 24 today. BUN was 10, creatinine 0.7 at presentation with a glucose of 86. Liver function tests essentially within normal limits. No cultures. A chest x-ray was done, it shows an almost 50+ % right pneumothorax at presentation. Post-procedure, there is a complete reinflation of the lung, post-dislodgement of the chest tube yesterday showed a small apical pneumothorax. I have repeated a chest x-ray this morning and it does not show any progression of the pneumothorax; however, it does suggest small lung volumes. I should mention that there is also gross cardiomegaly on the most recent x-ray that I am seeing and this might be due to the fact that it is a lordotic film, all sorts with lung volumes and vascular crowding, but almost suggests a mild interstitial edema. ASSESSMENT AND PLAN: We have a young lady with recurrent pneumothorax if her history is to be believed, so far, there is no evidence of significant recurrence of pneumothorax after the chest tube was dislodged. I do think it is appropriate; however, to get a noncontrast CT scan, preferably with high resolution windows to evaluate for cystic lung disease, evaluate for apical blebs, rule out some cystic lung disease related to the neurofibromatosis complex or other cystic lung diseases that may explain the recurrent pneumothorax and may warrant her needing to see a cardiothoracic surgeon for possible intervention. Otherwise, I have strongly counseled over 10 minutes counseled tobacco abstinence. We will get a dedicated CT as mentioned. She is appropriately on GI and DVT prophylaxis. Flu and pneumonia vaccination will be addressed per protocol. Thank you very much for the consult. We will follow along. We will make further recommendations as picture progresses/becomes clearer. JOB# [id number] SARAHI/JOE SIERRA
[2018-11-27] MEDS: PERCOCET 5/325 PO PRN ×2 (05:10→13:20)
[2018-11-27] MEDS: PEPCID PO SCH (09:17)
[2018-11-27] MEDS: SODIUM CHLORIDE FLUSH SYRINGE 10 ML IV SCH (09:19)
[2018-11-27] MEDS: TYLENOL PO PRN ×2 (09:24→15:44)
[2018-11-27] MEDS ORDERED: LOVENOX SUB-Q SCH (10:00)
--- NOTE | 2018-11-27 11:41 | Progress Note ---
Assessment and Plan Assessment and plan: 28-year-old woman who presents to the hospital with cough and pleuritic chest pain Spontaneous PTX. Pt had chest tube that was placed but inadvertently pulled out after admission. 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 She was counseled on tobacco cessation greater than 10 minutes spent Preventative health counseling performed for 17 minutes Marijuana use. Daily user History Interval history: Review of systems Constitutional: No fevers, no malaise, no joint pains CVS: No chest pain, no orthopnea, no dyspnea on exertion, no pedal edema GI: No abdominal pain, no diarrhea, no vomiting, no constipation Respiratory: no wheezing, no coughing Hospitalist Physical - Physical exam Narrative exam: General.: Appears well, no distress, nontoxic HEENT: Moist mucous membranes, extraocular muscles intact, no lymphadenopathy Neck: supple Cardiac: S1-S2 heard Lungs: clear to auscultation bilaterally Abdomen: soft , nontender, nondistended, bowel sounds positive Extremities: no edema clubbing or cyanosis Skin: no rash or lesions Neurologic: no gross focal deficits Psych: calm, and cooperative - Constitutional Vitals: Temp Pulse Resp BP Pulse Ox 98.1 F 61 18 102/49 97 11/27/18 06:17 11/27/18 06:17 11/27/18 06:17 11/27/18 06:17 11/27/18 06:17 General appearance: Present: no acute distress, well-nourished Results - Labs CBC & Chem 7: 11/25/18 13:17 11/26/18 04:24 Labs: Laboratory Last Values WBC 7.0 K/mm3 (4.5-11.0) 11/25/18 13:17 RBC 4.09 M/mm3 (3.65-5.03) 11/25/18 13:17 Hgb 11.6 gm/dl (10.1-14.3) 11/25/18 13:17 Hct 35.3 % (30.3-42.9) 11/25/18 13:17 MCV 86 fl (79-97) 11/25/18 13:17 MCH 28 pg (28-32) 11/25/18 13:17 MCHC 33 % (30-34) 11/25/18 13:17 RDW 15.7 % (13.2-15.2) H 11/25/18 13:17 Plt Count 187 K/mm3 (140-440) 11/25/18 13:17 Lymph % (Auto) 21.2 % (13.4-35.0) 11/25/18 13:17 [place] % (Auto) 9.9 % (0.0-7.3) H 11/25/18 13:17 Eos % (Auto) 0.5 % (0.0-4.3) 11/25/18 13:17 Baso % (Auto) 0.3 % (0.0-1.8) 11/25/18 13:17 Lymph # 1.5 K/mm3 (1.2-5.4) 11/25/18 13:17 [place] # 0.7 K/mm3 (0.0-0.8) 11/25/18 13:17 Eos # 0.0 K/mm3 (0.0-0.4) 11/25/18 13:17 Baso # 0.0 K/mm3 (0.0-0.1) 11/25/18 13:17 Seg Neutrophils % 68.1 % (40.0-70.0) 11/25/18 13:17 Seg Neutrophils # 4.8 K/mm3 (1.8-7.7) 11/25/18 13:17 PT 12.6 Sec. (12.2-14.9) 11/25/18 12:48 INR 0.97 (0.87-1.13) 11/25/18 12:48 APTT 23.5 Sec. (24.2-36.6) L 11/25/18 12:48 Sodium 140 mmol/L (137-145) 11/26/18 04:24 Potassium 4.0 mmol/L (3.6-5.0) 11/26/18 04:24 Chloride 106.0 mmol/L (98-107) 11/26/18 04:24 Carbon Dioxide 24 mmol/L (22-30) 11/26/18 04:24 14 mmol/L 11/26/18 04:24 BUN 13 mg/dL (7-17) 11/26/18 04:24 0.7 mg/dL (0.7-1.2) 11/26/18 04:24 Estimated GFR > 60 ml/min 11/26/18 04:24 19 % 11/26/18 04:24 Glucose 103 mg/dL (65-100) H 11/26/18 04:24 4.7 % (4-6) 11/25/18 13:17 Calcium 8.1 mg/dL (8.4-10.2) L 11/26/18 04:24 0.40 mg/dL (0.1-1.2) 11/26/18 04:24 AST 12 units/L (5-40) 11/26/18 04:24 ALT < 5 units/L (7-56) L 11/26/18 04:24 47 units/L (35-129) 11/26/18 04:24 6.6 g/dL (6.3-8.2) 11/26/18 04:24 3.6 g/dL (3.9-5) L 11/26/18 04:24 1.2 % 11/26/18 04:24 Active Medications - Current Medications Current Medications: Generic Name Dose Route Start Last Admin Trade Name Freq PRN Reason Stop Dose Admin Acetaminophen 650 mg 11/25/18 21:18 11/27/18 09:24 Tylenol PO 650 mg Q4H PRN Administration Pain MILD(1-3)/Fever >100.5/LIVE Enoxaparin Sodium 30 mg 11/27/18 10:00 11/27/18 09:18 Lovenox SUB-Q 30 mg QDAY REBECCA Administration Famotidine 20 mg 11/25/18 22:00 11/27/18 09:17 Pepcid PO 20 mg BID REBECCA Administration Hydromorphone HCl 0.5 mg 11/25/18 21:18 11/25/18 23:47 Dilaudid IV 0.5 mg Q3H PRN Administration Pain , Severe (7-10) Sodium Chloride 1,000 mls @ 75 mls/hr 11/25/18 22:00 11/25/18 23:47 Nacl 0.9% 1000 Ml IV 75 mls/hr DIRECT REBECCA Administration Ondansetron HCl 4 mg 11/25/18 21:18 11/26/18 00:47 Zofran IV 4 mg Q8H PRN Administration Nausea And Vomiting Oxycodone/Acetaminophen 1 tab 11/25/18 21:18 11/27/18 05:10 Percocet 5/325 PO 1 tab Q6H PRN Administration Pain, Moderate (4-6) Sodium Chloride 10 ml 11/25/18 22:00 11/27/18 09:19 Sodium Chloride Flush Syringe 10 Ml IV 10 ml BID REBECCA Administration Sodium Chloride 10 ml 11/25/18 21:18 Sodium Chloride Flush Syringe 10 Ml IV PRN PRN LINE FLUSH
--- NOTE | 2018-11-27 11:43 | Discharge Summary ---
Providers - Providers Date of Admission: 11/25/18 18:02 Attending physician: MAIRA NAYLOR MD 11/25/18 21:18 Consult to Physician [CONS] Routine Comment: Consulting Provider: SHANE ARANGO Physician Instructions: Reason For Exam: right pneumothorax [facility] Condition: Stable Hospital course: 28-year-old woman who presents to the hospital with cough and pleuritic chest pain Spontaneous PTX. Pt had chest tube that was placed but inadvertently pulled out after admission. Now resolved, CT only shows tiny apical bleb, and resolution of pneumothorax, tentative discharge later today if deputy chief counsel is agreeable Tobacco abuse. She was counseled on tobacco cessation greater than 10 minutes spent Preventative health counseling performed for 17 minutes Marijuana use. Daily user Disposition: - TO HOME OR SELFCARE Time spent for discharge: 33 mins Core Measure Documentation - Palliative Care Palliative Care/ Comfort Measures: Not Applicable - Core Measures Any of the following diagnoses?: none Exam - Constitutional Vitals: Temp Pulse Resp BP Pulse Ox 98.1 F 61 18 102/49 97 11/27/18 06:17 11/27/18 06:17 11/27/18 06:17 11/27/18 06:17 11/27/18 06:17 General appearance: Present: no acute distress, well-nourished - EENT Eyes: Present: PERRL ENT: hearing intact, clear oral mucosa - Neck Neck: Present: supple, normal ROM - Respiratory Respiratory effort: normal Respiratory: bilateral: CTA - Cardiovascular Heart Sounds: Present: S1 & S2. Absent: rub, click - Extremities Extremities: pulses symmetrical, No edema Peripheral Pulses: within normal limits - Abdominal General gastrointestinal: Present: soft, non-tender, non-distended, normal bowel sounds Female genitourinary: Present: normal - Integumentary Integumentary: Present: clear, warm, dry - Musculoskeletal Musculoskeletal: gait normal, strength equal bilaterally - Psychiatric Psychiatric: appropriate mood/affect, intact judgment & insight - Neurologic Neurologic: CNII-XII intact, moves all extremities Plan [facility]Primary Care Provider] - 3-5 Days Prescriptions: Nicotine [Habitrol] 14 mg TD DAILY #30 patch
--- NOTE | 2018-11-27 14:03 | Progress Note ---
Assessment and Plan Spontaneous PTX Tobacco abuse - tobacco cessation counseled - outpatient pulmonary clinic f/up - discharge OK pulmonary-ron Subjective Date of service: 11/27/18 Principal diagnosis: Recurrent Spontaneous Pneumothorax Interval history: Patient is seen today for: Recurrent Spontaneous Pneumothorax Seen and examined at bedside; 24hour events reviewed; nursing and respiratory care staff consulted; no adverse overnight events reported to me; resting peacrfully in bed; CT chest reviewed; no obvious blebs (residual pneumothorax in right apex likely) and no significant cystic lung disease; No N/V/F/C; no chest pains Objective Vital Signs - 12hr 11/27/18 11/27/18 06:17 12:36 Temperature 98.1 F 98.5 F Pulse Rate 61 54 L Respiratory 18 18 Rate Blood Pressure 102/49 124/79 O2 Sat by Pulse 97 100 Oximetry Constitutional: no acute distress Eyes: non-icteric ENT: oropharynx moist Neck: supple, no lymphadenopathy, no JVD Effort: normal Ascultation: Bilateral: clear Percussion: Bilateral: not dull Cardiovascular: regular rate and rhythm Gastrointestinal: normoactive bowel sounds, soft, non-tender, non-distended Integumentary: normal Extremities: no cyanosis, no edema, pulses normal, no ischemia or petechiae Neurologic: normal mental status, non-focal exam, pupils equal and round, motor strength normal and Psychiatric: mood appropriate, affect normal CBC and BMP: 11/25/18 13:17 11/26/18 04:24 ABG, PT/INR, D-dimer: PT/INR, D-dimer PT 12.6 Sec. (12.2-14.9) 11/25/18 12:48 INR 0.97 (0.87-1.13) 11/25/18 12:48 Abnormal lab findings: Abnormal Labs 11/25/18 11/25/18 11/25/18 12:48 12:48 13:17 RDW 15.7 H [place] % (Auto) 9.9 H APTT 23.5 L Carbon Dioxide 19 L Glucose Calcium ALT Albumin 11/26/18 04:24 RDW [place] % (Auto) APTT Carbon Dioxide Glucose 103 H Calcium 8.1 L ALT < [address] scan - chest: image reviewed (no cystic disease or significant blebs) Allied health notes reviewed: nursing
[2018-11-27 16:36] VITALS: BP 133/70
== END 2018-11-27 17:37 | disposition home or self-care (01) | DRG 201 ==
LOC: ED 10:06 → 3A 18:02
PROVIDERS: ADMIT Internal Medicine; ATTEND Internal Medicine
PROC: 0W9930Z Drainage of Right Pleural Cavity with Drainage Device, Percutaneous Approach (ICD-10-PCS; principal; 2018-11-25)
DX: J93.83 Other pneumothorax (principal); F17.200 Nicotine dependence, unspecified, uncomplicated; F12.90 Cannabis use, unspecified, uncomplicated; Z71.6 Tobacco abuse counseling; Z82.49 Family history of ischemic heart disease and other diseases of the circulatory system
CPT/HCPCS: 36415; 71045; 71046; 71250; 80048; 80053; 83036; 85025; 85610; 85730; 96372; 96374; 96375; G0378; J1170; J1200; J1650; J1885; J2060; J2270; J2405; J2765; J7030; J8540

== ENCOUNTER 2018-12-01 11:20 | Emergency (ER) | payer OTHER ==
[2018-12-01 11:26] VITALS: BP 113/68
--- NOTE | 2018-12-01 11:26 | Event Note ---
ED Screening Note ED Screening Note: admitted on 11/25/18 had a spontaneous PTX had a chest tube placed pt states the chest tube was removed on the same day due to it falling out pt presents for suture removal where chest tube was placed pt is a smoker This initial assessment/diagnostic orders/clinical plan/treatment(s) is/are subject to change based on patients health status, clinical progression and re- assessment by fellow clinical providers in the ED. Further treatment and workup at subsequent clinical providers discretion. Patient/guardian urged not to elope from the ED as their condition may be serious if not clinically assessed and managed.
--- NOTE | 2018-12-01 11:46 | Emergency Department Report ---
Chief Complaint: Laceration/Recheck/Suture Stated Complaint: STITCHES REMOVED Time Seen by Provider: 12/01/18 11:24 - HPI History of Present Illness: admitted on 11/25/18 had a spontaneous PTX had a chest tube placed pt states the chest tube was removed on the same day due to it falling out pt presents for suture removal where chest tube was placed this is her second spontaneous PTX she denies any CP or SOB pt is a smoker - Exam Vital Signs: Vital Signs 12/01/18 11:24 Temperature 98.0 F Pulse Rate 61 Respiratory 18 Rate Blood Pressure 113/68 O2 Sat by Pulse 99 Oximetry MSE screening note: Focused history and physical exam performed. ED Medical Decision Making - Medical Decision Making vitals are normal, oxygen saturation is 99% pt is in no acute distress incision site is clean, dry, intact with sutures in place no signs of infection breath sounds are clear bilaterally, no w/r/r, no respiratory distress, no stridor pt is A&Ox [address] Andrea Berry regarding pt history and exam and advised for pt to follow up with pulmonology for suture removal and reevaluation since hospital discharge. pt was advised to please follow up with the wood carving machine operator that you saw in the hospital as soon as possible. pt was given the name, phone number, and address of who she saw in the hospital. advised to return to the emergency room immediately for any new or worsening symptoms. discussed with pt to return immediately for SOB, CP, or signs of infection. ED Disposition for MSE Clinical Impression: Pneumothorax on right, Encounter for removal of sutures Disposition: [facility] SCREENING EXAM-LEFT Is pt being admited?: No Does the pt Need Aspirin: No Condition: Stable Additional Instructions: please follow up with the wood carving machine operator that you saw in the hospital as soon as possible. return to the emergency room immediately for any new or worsening symptoms. [facility] [Primary Care Provider] - 3-5 Days ANGELICA AN MD [Staff Physician] - [facility] Time of Disposition: 11:48 Print Language: TELUGU
== END 2018-12-01 12:13 | disposition left against medical advice (07) ==
LOC: ED 11:20
DX: J93.9 Pneumothorax, unspecified (principal); Z91.013 Allergy to seafood
CPT/HCPCS: 99282

== ENCOUNTER 2019-02-14 20:02 | Inpatient (IN) | payer OTHER, SELFPAY ==
--- NOTE | 2019-02-14 20:24 | Event Note ---
ED Screening Note Date of service: 02/14/19 Time: 20:19 ED Screening Note: 28 y o female presents to ED sob worsening states last time was told 50 percent of her lungs collapsed This initial assessment/diagnostic orders/clinical plan/treatment(s) is/are subject to change based on patients health status, clinical progression and re- assessment by fellow clinical providers in the ED. Further treatment and workup at subsequent clinical providers discretion. Patient/guardian urged not to elope from the ED as their condition may be serious if not clinically assessed and managed. Initial orders include: cxr
--- NOTE | 2019-02-14 21:18 | XRay Report ---
CHEST 2 VIEWS INDICATION / CLINICAL INFORMATION: Dyspnea. COMPARISON: 2 views of the chest from 02/09/2019. FINDINGS: SUPPORT DEVICES: None. HEART / MEDIASTINUM: No significant abnormality. LUNGS / PLEURA: The previously seen large right pneumothorax has increased in size with associated at electasis. The left lung is clear. No significant pleural effusion. ADDITIONAL FINDINGS: No significant additional findings. IMPRESSION: Interval increase in size of the previously described large right pneumothorax. Signer Name: Patrick Ramirez MD Signed: 02/14/2019 9:13 PM Workstation Name: [id number]
[2019-02-14 21:19] LABS: Basophils % (Auto) 0.4 % (0.0-1.8); Eosinophils # (Auto) 0.1 K/mm3 (0.0-0.4); Eosinophils % (Auto) 1.1 % (0.0-4.3); Hematocrit 38.9 % (30.3-42.9); Hemoglobin 12.4 gm/dl (10.1-14.3); Lymphocytes # (Auto) 2.5 K/mm3 (1.2-5.4); Lymphocytes % (Auto) 42.6 % (13.4-35.0); Mean Corpuscular HGB Conc 32 % (30-34); Mean Corpuscular Volume 86 fl (79-97); Monocytes # (Auto) 0.6 K/mm3 (0.0-0.8); Monocytes % (Auto) 9.7 % (0.0-7.3); Platelet Count 229 K/mm3 (140-440); Red Blood Count 4.52 M/mm3 (3.65-5.03)
[2019-02-14 21:37] LABS: BUN/Creatinine Ratio 16; Blood Urea Nitrogen 13 mg/dL (7-17); Hemolysis Index 3
--- NOTE | 2019-02-14 21:38 | Emergency Department Report ---
ED Shortness of Breath HPI - General Chief Complaint: Dyspnea/Respdistress Stated Complaint: RYAN Time Seen by Provider: 02/14/19 20:19 Source: patient Mode of arrival: Ambulatory Limitations: No Limitations - History of Present Illness Initial Comments: 28-year-old female with history of recurrent spontaneous pneumothoraces presents to ED with right-sided chest pain and shortness of breath. Patient was seen here one week ago and diagnosed with a right-sided moderate pneumothorax. Patient refused chest tube and admission at that time due to work obligations. Patient returns today for a chest tube. Patient states this is the fourth occurrence in the last 1.5 years. MD Complaint: shortness of breath -: week(s) (1) Quality: sharp Consistency: constant Improves With: nothing Worsens With: nothing Associated Symptoms: chest pain, pain with inspiration Treatments Prior to Arrival: none - Related Data Home Oxygen Therapy: No Home Medications Medication Instructions Recorded Confirmed Last Taken No Known Home Medications [No 02/15/19 02/15/19 Unknown Reported Home Medications] Allergies Allergy/AdvReac Type Severity Reaction Status Date / Time clams Allergy Anaphylaxis Verified 02/09/19 16:16 mussels Allergy Anaphylaxis Verified 02/09/19 16:16 ED Review of Systems ROS: Stated complaint: RYAN Other details as noted in HPI Comment: All other systems reviewed and negative Respiratory: shortness of breath Cardiovascular: chest pain ED Past Medical Hx - Past Medical History Additional medical history: pneumothorax - Surgical History Additional Surgical History: collapsed lung - Social History Smoking Status: Current Some Day Smoker - Medications Home Medications: Home Medications Medication Instructions Recorded Confirmed Last Taken Type No Known Home Medications [No 02/15/19 02/15/19 Unknown History Reported Home Medications] ED Physical Exam - General Limitations: No Limitations General appearance: alert, in no apparent distress - Head Head exam: Present: atraumatic, normocephalic - Eye Eye exam: Present: normal appearance, PERRL, EOMI - ENT ENT exam: Present: mucous membranes moist - Neck Neck exam: Present: normal inspection - Respiratory Respiratory exam: Present: decreased breath sounds (on right side). Absent: respiratory distress - Cardiovascular Cardiovascular Exam: Present: regular rate, normal rhythm - GI/Abdominal GI/Abdominal exam: Present: soft. Absent: distended, tenderness - Extremities Exam Extremities exam: Present: normal inspection - Neurological Exam Neurological exam: Present: alert, oriented X3 - Psychiatric Psychiatric exam: Present: normal affect, normal mood - Skin Skin exam: Present: warm, dry, intact, normal color ED Course Vital Signs 02/14/19 02/14/19 02/14/19 20:19 21:10 21:15 Temperature 98.2 F Temperature [ Pre-Procedure] Pulse Rate 75 68 73 Pulse Rate [ Intra-Procedure ] Pulse Rate [ Post-Procedure] Pulse Rate [Pre -Procedure] Respiratory 18 22 23 Rate Respiratory Rate [Intra- Procedure] Respiratory Rate [Post- Procedure] Respiratory Rate [Pre- Procedure] Blood Pressure 132/75 105/68 Blood Pressure [Intra- Procedure] Blood Pressure [Left] Blood Pressure [Post-Procedure ] Blood Pressure [Pre-Procedure] O2 Sat by Pulse 96 96 96 Oximetry O2 Sat by Pulse Oximetry [ Intra-Procedure ] O2 Sat by Pulse Oximetry [Post -Procedure] O2 Sat by Pulse Oximetry [Pre- Procedure] 02/14/19 02/14/19 02/14/19 21:30 21:45 22:00 Temperature Temperature [ Pre-Procedure] Pulse Rate 75 66 61 Pulse Rate [ Intra-Procedure ] Pulse Rate [ Post-Procedure] Pulse Rate [Pre -Procedure] Respiratory 21 26 H 28 H Rate Respiratory Rate [Intra- Procedure] Respiratory Rate [Post- Procedure] Respiratory Rate [Pre- Procedure] Blood Pressure 122/71 122/71 118/72 Blood Pressure [Intra- Procedure] Blood Pressure [Left] Blood Pressure [Post-Procedure ] Blood Pressure [Pre-Procedure] O2 Sat by Pulse 95 93 94 Oximetry O2 Sat by Pulse Oximetry [ Intra-Procedure ] O2 Sat by Pulse Oximetry [Post -Procedure] O2 Sat by Pulse Oximetry [Pre- Procedure] 02/14/19 02/14/19 02/14/19 22:15 22:20 22:30 Temperature 98.3 F Temperature [ Pre-Procedure] Pulse Rate 67 78 69 Pulse Rate [ Intra-Procedure ] Pulse Rate [ Post-Procedure] Pulse Rate [Pre -Procedure] Respiratory 15 20 21 Rate Respiratory Rate [Intra- Procedure] Respiratory Rate [Post- Procedure] Respiratory Rate [Pre- Procedure] Blood Pressure 118/72 108/75 Blood Pressure [Intra- Procedure] Blood Pressure 127/81 [Left] Blood Pressure [Post-Procedure ] Blood Pressure [Pre-Procedure] O2 Sat by Pulse 98 95 98 Oximetry O2 Sat by Pulse Oximetry [ Intra-Procedure ] O2 Sat by Pulse Oximetry [Post -Procedure] O2 Sat by Pulse Oximetry [Pre- Procedure] 02/14/19 02/14/19 02/14/19 22:35 22:45 23:00 Temperature Temperature [ Pre-Procedure] Pulse Rate 138 H 90 Pulse Rate [ Intra-Procedure ] Pulse Rate [ Post-Procedure] Pulse Rate [Pre -Procedure] Respiratory 21 12 Rate Respiratory Rate [Intra- Procedure] Respiratory Rate [Post- Procedure] Respiratory Rate [Pre- Procedure] Blood Pressure 119/70 154/86 142/83 Blood Pressure [Intra- Procedure] Blood Pressure [Left] Blood Pressure [Post-Procedure ] Blood Pressure [Pre-Procedure] O2 Sat by Pulse 100 94 Oximetry O2 Sat by Pulse Oximetry [ Intra-Procedure ] O2 Sat by Pulse Oximetry [Post -Procedure] O2 Sat by Pulse Oximetry [Pre- Procedure] 02/14/19 02/14/19 02/14/19 23:13 23:15 23:20 Temperature Temperature [ 98.2 F Pre-Procedure] Pulse Rate 78 76 Pulse Rate [ 127 H Intra-Procedure ] Pulse Rate [ 120 H Post-Procedure] Pulse Rate [Pre 110 H -Procedure] Respiratory 15 16 Rate Respiratory 20 Rate [Intra- Procedure] Respiratory 22 Rate [Post- Procedure] Respiratory 19 Rate [Pre- Procedure] Blood Pressure 145/76 119/70 Blood Pressure 147/91 [Intra- Procedure] Blood Pressure [Left] Blood Pressure 138/84 [Post-Procedure ] Blood Pressure 121/69 [Pre-Procedure] O2 Sat by Pulse 95 92 Oximetry O2 Sat by Pulse 100 Oximetry [ Intra-Procedure ] O2 Sat by Pulse 95 Oximetry [Post -Procedure] O2 Sat by Pulse 95 Oximetry [Pre- Procedure] 02/14/19 02/14/19 02/15/19 23:30 23:45 00:00 Temperature Temperature [ Pre-Procedure] Pulse Rate 79 74 30 L Pulse Rate [ Intra-Procedure ] Pulse Rate [ Post-Procedure] Pulse Rate [Pre -Procedure] Respiratory 20 19 128 H Rate Respiratory Rate [Intra- Procedure] Respiratory Rate [Post- Procedure] Respiratory Rate [Pre- Procedure] Blood Pressure 128/81 129/79 127/87 Blood Pressure [Intra- Procedure] Blood Pressure [Left] Blood Pressure [Post-Procedure ] Blood Pressure [Pre-Procedure] O2 Sat by Pulse 94 96 96 Oximetry O2 Sat by Pulse Oximetry [ Intra-Procedure ] O2 Sat by Pulse Oximetry [Post -Procedure] O2 Sat by Pulse Oximetry [Pre- Procedure] 02/15/19 02/15/19 02/15/19 00:15 00:30 00:46 Temperature Temperature [ Pre-Procedure] Pulse Rate 111 H 107 H 89 Pulse Rate [ Intra-Procedure ] Pulse Rate [ Post-Procedure] Pulse Rate [Pre -Procedure] Respiratory 18 11 L 13 Rate Respiratory Rate [Intra- Procedure] Respiratory Rate [Post- Procedure] Respiratory Rate [Pre- Procedure] Blood Pressure 144/90 144/79 132/81 Blood Pressure [Intra- Procedure] Blood Pressure [Left] Blood Pressure [Post-Procedure ] Blood Pressure [Pre-Procedure] O2 Sat by Pulse 95 98 100 Oximetry O2 Sat by Pulse Oximetry [ Intra-Procedure ] O2 Sat by Pulse Oximetry [Post -Procedure] O2 Sat by Pulse Oximetry [Pre- Procedure] 02/15/19 02/15/19 02/15/19 01:00 01:15 01:30 Temperature Temperature [ Pre-Procedure] Pulse Rate 71 66 28 L Pulse Rate [ Intra-Procedure ] Pulse Rate [ Post-Procedure] Pulse Rate [Pre -Procedure] Respiratory 15 18 89 H Rate Respiratory Rate [Intra- Procedure] Respiratory Rate [Post- Procedure] Respiratory Rate [Pre- Procedure] Blood Pressure 127/83 129/77 Blood Pressure [Intra- Procedure] Blood Pressure [Left] Blood Pressure [Post-Procedure ] Blood Pressure [Pre-Procedure] O2 Sat by Pulse 100 Oximetry O2 Sat by Pulse Oximetry [ Intra-Procedure ] O2 Sat by Pulse Oximetry [Post -Procedure] O2 Sat by Pulse Oximetry [Pre- Procedure] 02/15/19 02/15/19 02/15/19 02:02 02:15 02:31 Temperature Temperature [ Pre-Procedure] Pulse Rate 59 L Pulse Rate [ Intra-Procedure ] Pulse Rate [ Post-Procedure] Pulse Rate [Pre -Procedure] Respiratory 14 11 L 24 Rate Respiratory Rate [Intra- Procedure] Respiratory Rate [Post- Procedure] Respiratory Rate [Pre- Procedure] Blood Pressure 123/66 112/70 123/75 Blood Pressure [Intra- Procedure] Blood Pressure [Left] Blood Pressure [Post-Procedure ] Blood Pressure [Pre-Procedure] O2 Sat by Pulse 100 100 100 Oximetry O2 Sat by Pulse Oximetry [ Intra-Procedure ] O2 Sat by Pulse Oximetry [Post -Procedure] O2 Sat by Pulse Oximetry [Pre- Procedure] 02/15/19 02/15/19 02/15/19 02:45 03:00 03:15 Temperature Temperature [ Pre-Procedure] Pulse Rate Pulse Rate [ Intra-Procedure ] Pulse Rate [ Post-Procedure] Pulse Rate [Pre -Procedure] Respiratory 16 20 18 Rate Respiratory Rate [Intra- Procedure] Respiratory Rate [Post- Procedure] Respiratory Rate [Pre- Procedure] Blood Pressure 123/75 105/76 105/76 Blood Pressure [Intra- Procedure] Blood Pressure [Left] Blood Pressure [Post-Procedure ] Blood Pressure [Pre-Procedure] O2 Sat by Pulse 100 98 100 Oximetry O2 Sat by Pulse Oximetry [ Intra-Procedure ] O2 Sat by Pulse Oximetry [Post -Procedure] O2 Sat by Pulse Oximetry [Pre- Procedure] 02/15/19 02/15/19 02/15/19 03:30 03:45 04:00 Temperature Temperature [ Pre-Procedure] Pulse Rate Pulse Rate [ Intra-Procedure ] Pulse Rate [ Post-Procedure] Pulse Rate [Pre -Procedure] Respiratory 10 L 15 18 Rate Respiratory Rate [Intra- Procedure] Respiratory Rate [Post- Procedure] Respiratory Rate [Pre- Procedure] Blood Pressure 120/75 120/75 121/73 Blood Pressure [Intra- Procedure] Blood Pressure [Left] Blood Pressure [Post-Procedure ] Blood Pressure [Pre-Procedure] O2 Sat by Pulse 98 100 98 Oximetry O2 Sat by Pulse Oximetry [ Intra-Procedure ] O2 Sat by Pulse Oximetry [Post -Procedure] O2 Sat by Pulse Oximetry [Pre- Procedure] 02/15/19 02/15/19 02/15/19 04:15 04:30 04:45 Temperature Temperature [ Pre-Procedure] Pulse Rate Pulse Rate [ Intra-Procedure ] Pulse Rate [ Post-Procedure] Pulse Rate [Pre -Procedure] Respiratory 16 11 L 22 Rate Respiratory Rate [Intra- Procedure] Respiratory Rate [Post- Procedure] Respiratory Rate [Pre- Procedure] Blood Pressure 121/73 110/61 110/61 Blood Pressure [Intra- Procedure] Blood Pressure [Left] Blood Pressure [Post-Procedure ] Blood Pressure [Pre-Procedure] O2 Sat by Pulse 100 98 100 Oximetry O2 Sat by Pulse Oximetry [ Intra-Procedure ] O2 Sat by Pulse Oximetry [Post -Procedure] O2 Sat by Pulse Oximetry [Pre- Procedure] 02/15/19 02/15/19 02/15/19 04:53 05:00 05:15 Temperature Temperature [ Pre-Procedure] Pulse Rate 74 Pulse Rate [ Intra-Procedure ] Pulse Rate [ Post-Procedure] Pulse Rate [Pre -Procedure] Respiratory 16 25 H Rate Respiratory Rate [Intra- Procedure] Respiratory Rate [Post- Procedure] Respiratory Rate [Pre- Procedure] Blood Pressure 107/54 107/54 Blood Pressure [Intra- Procedure] Blood Pressure [Left] Blood Pressure [Post-Procedure ] Blood Pressure [Pre-Procedure] O2 Sat by Pulse 98 99 Oximetry O2 Sat by Pulse Oximetry [ Intra-Procedure ] O2 Sat by Pulse Oximetry [Post -Procedure] O2 Sat by Pulse Oximetry [Pre- Procedure] 02/15/19 02/15/19 02/15/19 05:30 05:45 06:00 Temperature Temperature [ Pre-Procedure] Pulse Rate Pulse Rate [ Intra-Procedure ] Pulse Rate [ Post-Procedure] Pulse Rate [Pre -Procedure] Respiratory 18 22 19 Rate Respiratory Rate [Intra- Procedure] Respiratory Rate [Post- Procedure] Respiratory Rate [Pre- Procedure] Blood Pressure 102/57 102/57 115/64 Blood Pressure [Intra- Procedure] Blood Pressure [Left] Blood Pressure [Post-Procedure ] Blood Pressure [Pre-Procedure] O2 Sat by Pulse 99 99 97 Oximetry O2 Sat by Pulse Oximetry [ Intra-Procedure ] O2 Sat by Pulse Oximetry [Post -Procedure] O2 Sat by Pulse Oximetry [Pre- Procedure] 02/15/19 02/15/19 02/15/19 06:15 06:30 06:45 Temperature Temperature [ Pre-Procedure] Pulse Rate Pulse Rate [ Intra-Procedure ] Pulse Rate [ Post-Procedure] Pulse Rate [Pre -Procedure] Respiratory 20 18 18 Rate Respiratory Rate [Intra- Procedure] Respiratory Rate [Post- Procedure] Respiratory Rate [Pre- Procedure] Blood Pressure 115/64 118/64 118/64 Blood Pressure [Intra- Procedure] Blood Pressure [Left] Blood Pressure [Post-Procedure ] Blood Pressure [Pre-Procedure] O2 Sat by Pulse 100 99 99 Oximetry O2 Sat by Pulse Oximetry [ Intra-Procedure ] O2 Sat by Pulse Oximetry [Post -Procedure] O2 Sat by Pulse Oximetry [Pre- Procedure] 02/15/19 02/15/19 02/15/19 07:01 07:11 07:21 Temperature Temperature [ Pre-Procedure] Pulse Rate Pulse Rate [ Intra-Procedure ] Pulse Rate [ Post-Procedure] Pulse Rate [Pre -Procedure] Respiratory 19 16 16 Rate Respiratory Rate [Intra- Procedure] Respiratory Rate [Post- Procedure] Respiratory Rate [Pre- Procedure] Blood Pressure 110/74 110/74 110/74 Blood Pressure [Intra- Procedure] Blood Pressure [Left] Blood Pressure [Post-Procedure ] Blood Pressure [Pre-Procedure] O2 Sat by Pulse 100 98 100 Oximetry O2 Sat by Pulse Oximetry [ Intra-Procedure ] O2 Sat by Pulse Oximetry [Post -Procedure] O2 Sat by Pulse Oximetry [Pre- Procedure] 02/15/19 02/15/19 02/15/19 07:30 07:41 07:42 Temperature Temperature [ Pre-Procedure] Pulse Rate 61 Pulse Rate [ Intra-Procedure ] Pulse Rate [ Post-Procedure] Pulse Rate [Pre -Procedure] Respiratory 17 12 16 Rate Respiratory Rate [Intra- Procedure] Respiratory Rate [Post- Procedure] Respiratory Rate [Pre- Procedure] Blood Pressure 115/70 115/70 Blood Pressure [Intra- Procedure] Blood Pressure 115/70 [Left] Blood Pressure [Post-Procedure ] Blood Pressure [Pre-Procedure] O2 Sat by Pulse 100 100 100 Oximetry O2 Sat by Pulse Oximetry [ Intra-Procedure ] O2 Sat by Pulse Oximetry [Post -Procedure] O2 Sat by Pulse Oximetry [Pre- Procedure] 02/15/19 02/15/19 02/15/19 07:51 08:00 08:11 Temperature Temperature [ Pre-Procedure] Pulse Rate Pulse Rate [ Intra-Procedure ] Pulse Rate [ Post-Procedure] Pulse Rate [Pre -Procedure] Respiratory 16 12 17 Rate Respiratory Rate [Intra- Procedure] Respiratory Rate [Post- Procedure] Respiratory Rate [Pre- Procedure] Blood Pressure 115/70 108/63 108/63 Blood Pressure [Intra- Procedure] Blood Pressure [Left] Blood Pressure [Post-Procedure ] Blood Pressure [Pre-Procedure] O2 Sat by Pulse 100 100 100 Oximetry O2 Sat by Pulse Oximetry [ Intra-Procedure ] O2 Sat by Pulse Oximetry [Post -Procedure] O2 Sat by Pulse Oximetry [Pre- Procedure] 02/15/19 02/15/19 02/15/19 08:21 08:31 08:41 Temperature Temperature [ Pre-Procedure] Pulse Rate Pulse Rate [ Intra-Procedure ] Pulse Rate [ Post-Procedure] Pulse Rate [Pre -Procedure] Respiratory 18 15 13 Rate Respiratory Rate [Intra- Procedure] Respiratory Rate [Post- Procedure] Respiratory Rate [Pre- Procedure] Blood Pressure 108/63 108/63 108/63 Blood Pressure [Intra- Procedure] Blood Pressure [Left] Blood Pressure [Post-Procedure ] Blood Pressure [Pre-Procedure] O2 Sat by Pulse 100 100 99 Oximetry O2 Sat by Pulse Oximetry [ Intra-Procedure ] O2 Sat by Pulse Oximetry [Post -Procedure] O2 Sat by Pulse Oximetry [Pre- Procedure] 02/15/19 02/15/19 02/15/19 08:51 09:00 09:11 Temperature Temperature [ Pre-Procedure] Pulse Rate Pulse Rate [ Intra-Procedure ] Pulse Rate [ Post-Procedure] Pulse Rate [Pre -Procedure] Respiratory 15 12 15 Rate Respiratory Rate [Intra- Procedure] Respiratory Rate [Post- Procedure] Respiratory Rate [Pre- Procedure] Blood Pressure 108/63 110/70 108/63 Blood Pressure [Intra- Procedure] Blood Pressure [Left] Blood Pressure [Post-Procedure ] Blood Pressure [Pre-Procedure] O2 Sat by Pulse 100 100 100 Oximetry O2 Sat by Pulse Oximetry [ Intra-Procedure ] O2 Sat by Pulse Oximetry [Post -Procedure] O2 Sat by Pulse Oximetry [Pre- Procedure] 02/15/19 02/15/19 02/15/19 09:21 09:31 09:40 Temperature 98.9 F Temperature [ Pre-Procedure] Pulse Rate 63 Pulse Rate [ Intra-Procedure ] Pulse Rate [ Post-Procedure] Pulse Rate [Pre -Procedure] Respiratory 17 16 12 Rate Respiratory Rate [Intra- Procedure] Respiratory Rate [Post- Procedure] Respiratory Rate [Pre- Procedure] Blood Pressure 108/63 117/75 Blood Pressure [Intra- Procedure] Blood Pressure 110/70 [Left] Blood Pressure [Post-Procedure ] Blood Pressure [Pre-Procedure] O2 Sat by Pulse 100 100 100 Oximetry O2 Sat by Pulse Oximetry [ Intra-Procedure ] O2 Sat by Pulse Oximetry [Post -Procedure] O2 Sat by Pulse Oximetry [Pre- Procedure] 02/15/19 02/15/19 02/15/19 09:41 09:51 10:00 Temperature Temperature [ Pre-Procedure] Pulse Rate Pulse Rate [ Intra-Procedure ] Pulse Rate [ Post-Procedure] Pulse Rate [Pre -Procedure] Respiratory 17 20 14 Rate Respiratory Rate [Intra- Procedure] Respiratory Rate [Post- Procedure] Respiratory Rate [Pre- Procedure] Blood Pressure 117/75 117/75 117/72 Blood Pressure [Intra- Procedure] Blood Pressure [Left] Blood Pressure [Post-Procedure ] Blood Pressure [Pre-Procedure] O2 Sat by Pulse 100 100 100 Oximetry O2 Sat by Pulse Oximetry [ Intra-Procedure ] O2 Sat by Pulse Oximetry [Post -Procedure] O2 Sat by Pulse Oximetry [Pre- Procedure] 02/15/19 02/15/19 10:11 10:21 Temperature Temperature [ Pre-Procedure] Pulse Rate Pulse Rate [ Intra-Procedure ] Pulse Rate [ Post-Procedure] Pulse Rate [Pre -Procedure] Respiratory 17 18 Rate Respiratory Rate [Intra- Procedure] Respiratory Rate [Post- Procedure] Respiratory Rate [Pre- Procedure] Blood Pressure 117/72 117/72 Blood Pressure [Intra- Procedure] Blood Pressure [Left] Blood Pressure [Post-Procedure ] Blood Pressure [Pre-Procedure] O2 Sat by Pulse 100 99 Oximetry O2 Sat by Pulse Oximetry [ Intra-Procedure ] O2 Sat by Pulse Oximetry [Post -Procedure] O2 Sat by Pulse Oximetry [Pre- Procedure] - Consultations Consultation #1: 02/15/19 01:13 Spoke w/ Dr Cifuentes, nutrition program instructor. Aware of pt. Asked if ok to connect chest tube to suction due to possibility of pulm edema w/ chronic pneumothorax. States suction ok since no evidence of edema in inflated lung now. - Chest Tube Chest Tube Location: forth interspace Size of [place] Tube (cm): 24 Chest Tube Procedure: betadine prep, sterile drapes applied, sterile dressing applied Anesthesia: 1% Lidocaine w/ Epi Volume Anesthetic (ccs): 10 Flannery of Air Perry: Yes Number of Attempts: 2 Tube Sutured to Skin: Yes Post Procedure CXR?: Yes Progress: resolved - Moderate Sedation Indications: other (chest tube) Fentanyl: IV Fentanyl Dose: 100 Ketamine: IV Ketamine Dose: 136 IV Propofol Dose (mgs): 150 IV Etomidate Dose (mgs): 20 Complications: none Patient Tolerated Procedure: well Additional Comments: Pt difficult to sedate. Ultimately, etomidate worked the best. ED Medical Decision Making - Lab Data Result diagrams: 02/16/19 04:28 02/16/19 04:28 - Radiology Data Radiology results: report reviewed, image reviewed - Medical Decision Making 28-year-old female with spontaneous pneumothorax 5 days. Seen 5 days ago and refused chest tube at that time, left AMA. Patient had large right-sided pneumothorax at that time. Chest x-ray today shows interval increase compared to last week. Pigtail catheter was placed initially by me, however there was no reexpansion of the lung. So pigtail catheter was removed and 24 [place] catheter was placed with complete resolution of the pneumothorax. I spoke with nutrition program instructor, recommends keeping patient on suction since no evidence of pulmonary edema on the x-ray. CT chest without contrast ordered. Will admit to hospitalist, Dr Otoole. - Differential Diagnosis pneumothorax, tension pneumothorax Critical Care Time: Yes Critical care time in (mins) excluding proc time.: 35 Critical care attestation.: If time is entered above; I have spent that time in minutes in the direct care of this critically ill patient, excluding procedure time. Critical Care Time: 35 minutes ED Disposition Clinical Impression: Pneumothorax on right Disposition: [id number] OP ADMIT IP TO THIS HOSP Is pt being admited?: Yes Condition: Stable Time of Disposition: 01:14
[2019-02-14] MEDS ORDERED: KETAMINE 500 MG/5 ML VIAL MDV IV ONE (21:54)
--- NOTE | 2019-02-14 23:59 | XRay Report ---
CHEST 1 VIEW 02/14/2019 11:25 PM INDICATION / CLINICAL INFORMATION: post chest tube. COMPARISON: Exam done earlier on 02/14/2019. FINDINGS: SUPPORT DEVICES: Right sided chest tube has been placed. HEART / MEDIASTINUM: Stable. LUNGS / PLEURA: The large right pneumothorax is not appreciably changed from prior. Left lung remains clear. ADDITIONAL FINDINGS: No significant additional findings. IMPRESSION: 1. No appreciable change in the right pneumothorax following placement of chest tube. Signer Name: Graham Simpson MD Signed: 02/14/2019 11:55 PM Workstation Name: [id number]
[2019-02-15] MEDS ORDERED: PROPOFOL 200 MG/20 ML VIAL IV ONE ×3 (00:05→01:52)
[2019-02-15] MEDS ORDERED: fentaNYL 100 MCG/2 ML INJ ONE (00:06)
[2019-02-15] MEDS ORDERED: SODIUM CHLORIDE 0.9% 1000 ML 1,000 ML ONE ×2 (00:14→11:44)
[2019-02-15] MEDS ORDERED: SODIUM CHLORIDE 0.9% 1000 ML 1,000 ML IV ONE (00:20)
[2019-02-15] MEDS ORDERED: ETOMIDATE 20 MG/10 ML INJ IV ONE ×2 (00:31→01:52)
--- NOTE | 2019-02-15 01:19 | XRay Report ---
CHEST 1 VIEW 02/15/2019 12:52 AM INDICATION / CLINICAL INFORMATION: post chest tube. COMPARISON: Chest x-ray on 02/14/2019. FINDINGS: SUPPORT DEVICES: Right thoracostomy tube has been placed. HEART / MEDIASTINUM: No significant abnormality. LUNGS / PLEURA: Nearly completely resolved right pneumothorax with significant expansion of the right lung. No pneumothorax. ADDITIONAL FINDINGS: No significant additional findings. IMPRESSION: 1. Right pneumothorax is nearly completely resolved following right thoracostomy tube placement. Signer Name: Graham Simpson MD Signed: 02/15/2019 1:14 AM Workstation Name: [id number]
[2019-02-15] MEDS ORDERED: fentaNYL 100 MCG/2 ML INJ IV ONE ×2 (01:51)
[2019-02-15] MEDS ORDERED: KETAMINE 500 MG/5 ML VIAL MDV IV ONE (01:51)
[2019-02-15] MEDS ORDERED: ACETAMINOPHEN 325 MG TAB PO PRN (02:30)
[2019-02-15] MEDS ORDERED: POTASSIUM CHLORIDE ER 20 MEQ TAB PO ONE (02:30)
--- NOTE | 2019-02-15 02:34 | Cat Scan Report ---
CT CHEST WITHOUT CONTRAST HISTORY: Recurrent pneumothorax COMPARISON: Chest CT on 11/26/2018. Multiple prior chest x-rays, most recently done earlier on 9. TECHNIQUE: Routine chest CT exam performed without contrast. Lack of intravenous contrast limits vidhi luation of the vascular and solid organs.. All CT scans at this location are performed using CT dose reduction for ALARA by means of automated exposure control. CONTRAST: None. FINDINGS: CT CHEST: Right thoracostomy tube is in place. It is entering the right lower lobe of the lungs and traversing the lung parenchyma into the medial left upper lobe. There is a small residual anterior right pneumot horax. There are groundglass opacities in the right middle lobe and medial right lower lobe. There are some small subpleural blebs in the right lung apex without large bullous change. The left lung appears manuel ar. The heart is normal in size. There is no intrathoracic adenopathy. Visualized upper abdominal organs demonstrate no significant abnormalities. IMPRESSION: 1. Right thoracostomy tube in place with small residual right pneumothorax. 2. Small subpleural blebs in the right lung apex without large bullous change. 3. Ground glass opacities in the right middle and right lower lobes may represent areas of pulmonary hemorrhage or reexpansion pulmonary edema. Signer Name: Graham Simpson MD Signed: 02/15/2019 2:29 AM Workstation Name: [id number]
--- NOTE | 2019-02-15 02:42 | History and Physical Report ---
History of Present Illness Date of examination: 02/15/19 Date of admission: 02/15/2019 Chief complaint: difficulty in breathing History of present illness: 28-year-old -[place] female in ongoing smoker with history of recurrent spontaneous pneumothorax who presents to [facility] ED with complaints of right-sided chest pain and shortness of breath. Over the past week her shortness of breath has worsened. She states that her shortness of breath is worse with activity and is relieved with rest. She admits to feeling light headed and having an dry nonproductive cough over the past week. Of note pt presented to ED on 02/09 with similar complaints and diagnosed with right sided pneumothorax, but left AMA for personal reasons before being treated. Denies: n/v/, fever, hemoptysis, headache, or visual disturbances Past History Past Medical History: other (rt sided pneumothorax) Past Surgical History: Other (hx of chest tube insertion 11/2018) Social history: smoking (current everday smoker) Family history: no significant family history Medications and Allergies Allergies Allergy/AdvReac Type Severity Reaction Status Date / Time clams Allergy Anaphylaxis Verified 02/09/19 16:16 mussels Allergy Anaphylaxis Verified 02/09/19 16:16 Home Medications Medication Instructions Recorded Confirmed Last Taken Type Nicotine [Habitrol] 14 mg TD DAILY #30 patch 11/27/18 Unknown Rx Active Meds: Active Medications Acetaminophen (Tylenol) 650 mg PO Q4H PRN PRN Reason: Pain MILD(1-3)/Fever >100.5/LIVE Enoxaparin Sodium (Lovenox) 40 mg SUB-Q QDAY REBECCA Nicotine (Habitrol) 14 mg TD QDAY REBECCA Ondansetron HCl (Zofran) 4 mg IV Q8H PRN PRN Reason: Nausea And Vomiting Oxycodone/Acetaminophen (Percocet 5/325) 1 tab PO Q6H PRN PRN Reason: Pain, Moderate (4-6) Sodium Chloride (Sodium Chloride Flush Syringe 10 Ml) 10 ml IV BID REBECCA Sodium Chloride (Sodium Chloride Flush Syringe 10 Ml) 10 ml IV PRN PRN PRN Reason: LINE FLUSH Review of Systems All systems: negative Respiratory: cough, other (right sided rib pain) Neurological: other (lightheaded) Exam - Physical Exam Narrative exam: Physical exam General appearance: Present: No acute distress, alert and oriented 3, well developed, pleasant, adult -[place] female - EENT Eyes: Present: PERRL, EOM intact, ENT: hearing intact, normal dentition - Neck Neck: Present: supple, normal ROM - Respiratory Respiratory effort: Non-labored Respiratory: crackles to right base, right chest tube to suction - Cardiovascular Heart rate: 75 (bpm) Rhythm: SR Heart Sounds: Present: - Extremities Extremities: no ischemia, pulses intact - Peripheral Assessment Peripheral Pulses: within normal limits - Abdominal General gastrointestinal: Soft, non-tender, normal bowel sounds - Integumentary Integumentary: Present: warm, dry, - Musculoskeletal Musculoskeletal: Able to move all extremities -Neurological Neurological: CN II-XII grossly intact - Psychiatric Psychiatric: cooperative - Constitutional Vitals: Temp Pulse Resp BP Pulse Ox 98.2 F 59 L 14 123/66 100 02/14/19 23:20 02/15/19 02:02 02/15/19 02:02 02/15/19 02:02 02/15/19 02:02 Results - Labs CBC & Chem 7: 02/14/19 20:33 02/14/19 20:33 Labs: Laboratory Last Values WBC 5.9 K/mm3 (4.5-11.0) 02/14/19 20:33 RBC 4.52 M/mm3 (3.65-5.03) 02/14/19 20:33 Hgb 12.4 gm/dl (10.1-14.3) 02/14/19 20:33 Hct 38.9 % (30.3-42.9) 02/14/19 20:33 MCV 86 fl (79-97) 02/14/19 20:33 MCH 27 pg (28-32) L 02/14/19 20:33 MCHC 32 % (30-34) 02/14/19 20:33 RDW 15.0 % (13.2-15.2) 02/14/19 20:33 Plt Count 229 K/mm3 (140-440) 02/14/19 20:33 Lymph % (Auto) 42.6 % (13.4-35.0) H 02/14/19 20:33 [place] % (Auto) 9.7 % (0.0-7.3) H 02/14/19 20:33 Eos % (Auto) 1.1 % (0.0-4.3) 02/14/19 20:33 Baso % (Auto) 0.4 % (0.0-1.8) 02/14/19 20:33 Lymph # 2.5 K/mm3 (1.2-5.4) 02/14/19 20:33 [place] # 0.6 K/mm3 (0.0-0.8) 02/14/19 20:33 Eos # 0.1 K/mm3 (0.0-0.4) 02/14/19 20:33 Baso # 0.0 K/mm3 (0.0-0.1) 02/14/19 20:33 Seg Neutrophils % 46.2 % (40.0-70.0) 02/14/19 20:33 Seg Neutrophils # 2.7 K/mm3 (1.8-7.7) 02/14/19 20:33 Sodium 139 mmol/L (137-145) 02/14/19 20:33 Potassium 3.2 mmol/L (3.6-5.0) L 02/14/19 20:33 Chloride 102.2 mmol/L (98-107) 02/14/19 20:33 Carbon Dioxide 23 mmol/L (22-30) 02/14/19 20:33 17 mmol/L 02/14/19 20:33 BUN 13 mg/dL (7-17) 02/14/19 20:33 0.8 mg/dL (0.7-1.2) 02/14/19 20:33 Estimated GFR > 60 ml/min 02/14/19 20:33 16 % 02/14/19 20:33 Glucose 116 mg/dL (65-100) H 02/14/19 20:33 Calcium 9.0 mg/dL (8.4-10.2) 02/14/19 20:33 - Imaging and Cardiology Imaging and Cardiology: CT Chest Pending CXR FINDINGS: SUPPORT DEVICES: Right sided chest tube has been placed. HEART / MEDIASTINUM: Stable. LUNGS / PLEURA: The large right pneumothorax is not appreciably changed from prior. Left lung remains clear. ADDITIONAL FINDINGS: No significant additional findings. IMPRESSION: 1. No appreciable change in the right pneumothorax following placement of chest tube. CXR s/p Chest Tube Insertion: FINDINGS: SUPPORT DEVICES: Right thoracostomy tube has been placed. HEART / MEDIASTINUM: No significant abnormality. LUNGS / PLEURA: Nearly completely resolved right pneumothorax with significant expansion of the right lung. No pneumothorax. ADDITIONAL FINDINGS: No significant additional findings. IMPRESSION: 1. Right pneumothorax is nearly completely resolved following right thoracostomy tube placement. Assessment and Plan Assessment and plan: 28-year-old -[place] female in ongoing smoker with history of recurrent spontaneous pneumothorax who presents to [facility] ED with complaints of right-sided chest pain and shortness of breath. Right sided pneumothorax -Hx of right sided pneumothorax (4th times for this year) -Pt presented on 02/09 with pneumothorax, but left AMA for personal reason -Initial CXR showed large right pneumothorax is not appreciably changed from prior -Rt chest tube placed -Repeat CXR shows Right pneumothorax is nearly completely resolved following right thoracostomy tube placement -Continue supportive care -Pulmonary following Hypokalemia -3.2 on admission -Repleted -Continue to monitor electrolytes, replete prn Tobacco abuse -Current every day smoker -Counseled for cessation -Nicotine patch when necessary DVT PPX -On Lovenox Advance Directives: No VTE prophylaxis?: Chemical
[2019-02-15] MEDS ORDERED: MORPHINE 2 MG/1 ML INJ IV ONE (03:33)
[2019-02-15] MEDS ORDERED: MORPHINE 2 MG/1 ML INJ ONE ×2 (03:37→06:57)
[2019-02-15] MEDS ORDERED: MORPHINE 2 MG/1 ML INJ IV PRN (05:35)
[2019-02-15] MEDS: MORPHINE 2 MG/1 ML INJ IV PRN ×3 (07:04→13:05)
[2019-02-15 09:31] LABS: BUN/Creatinine Ratio 17; Blood Urea Nitrogen 12 mg/dL (7-17); Calcium 8.2 mg/dL (8.4-10.2); Hemolysis Index 8
[2019-02-15] MEDS ORDERED: oxyCODONE /ACETAMINOPHEN 5-325MG TAB ONE (09:37)
[2019-02-15] MEDS: oxyCODONE /ACETAMINOPHEN 5-325MG TAB PO PRN ×2 (10:00→14:48)
[2019-02-15] MEDS ORDERED: MIDAZOLAM 2 MG/2 ML INJ IV NR (12:00)
--- NOTE | 2019-02-15 12:31 | Event Note ---
Date: 02/15/19 Patient was seen and evaluated at the bedside, patient is c/o chest pain at the site of chest tube insertion. There is some blood in the chest tube. Pulmonary consulted and will see the patient.
--- NOTE | 2019-02-15 12:48 | Procedure Note ---
Date of procedure: 02/15/19 Pre-op diagnosis: Pneumothorax Post-op diagnosis: same Procedure: Right sided chest tube placement. This is the third tube the patient has had in the last 24 hours. Patient consented by myself and anesthesia for conscious sedation and this was administered. Once sutures removed finder needle placed to aspirate air. Wire threaded through finder needle and need removed. Trocar and cather then fed over wire and gush of air heard. Catheter then sutured dressed and hooked up to suction. Anesthesia: MAC Surgeon: YULISA JOLLEY Estimated blood loss: minimal Pathology: none Condition: stable Disposition: floor
--- NOTE | 2019-02-15 12:50 | Anesthesia Consultation ---
Anesthesia Consult and Med Hx Date of service: 02/15/19 - Airway Anesthetic Teeth Evaluation: Good ROM Head & Neck: Adequate Mental/Hyoid Distance: Adequate Mallampati Class: Class II Intubation Access Assessment: Good - Pulmonary Exam CTA: Yes - Cardiac Exam Cardiac Exam: RRR - Pre-Operative Health Status ASA Pre-Surgery Classification: ASA3 Proposed Anesthetic Plan: MAC - Pulmonary Hx Smoking: Yes Home Oxygen Therapy: No - Central Nervous System Hx Psychiatric Problems: No - Other Systems Hx Cancer: No
--- NOTE | 2019-02-15 12:50 | Anesthesia Day of Surgery ---
Anesthesia Day of Surgery - Day of Surgery Patient Examined: Yes Patient H&P Reviewed: Yes Patient is NPO: Yes
--- NOTE | 2019-02-15 12:51 | Post Anesthesia Evaluation ---
- Post Anesthesia Evaluation Patient Participated: Yes Airway Patent: Yes Stable Respiratory Function: Yes Nausea/Vomiting: No Temp > 96.8F: Yes Pain Manageable: Yes Adequeate Hydration: Yes Anesthesia Complications: No Block Receding Appropriately: Not Applicable Patient on Ventilator: No
--- NOTE | 2019-02-15 13:16 | Event Note ---
Date: 02/15/19 Full consult to follow. 28 y/o with 4th PTX. Smoker. Could have ROLLINS. Had CT but needs a high resolution scan (do not order now). I am going to speak to some CT surgeons at [place] to see if they would be willing to take her for VATS and then ship her back to us. She may need talc pleurodesis as well. I had to place another chest tube this am after the 2nd chest tube (2 placed in ED) had become dislodged. CXR shows about 90% re-expansion
--- NOTE | 2019-02-15 13:30 | XRay Report ---
CHEST 1 VIEW INDICATION: Pneumothorax, s/p chest tube placement. COMPARISON: 02/15/2019 FINDINGS: Support devices: A small caliber inferior chest tube has replaced a larger more superior chest tube. A small residual right upper lobe pneumothorax. Heart: Within normal limits. Lungs/Pleura: New streaky opacities in the lung bases, greater on the left than the right. Additional findings: None. IMPRESSION: 1. A small right upper pneumothorax after placement of small caliber chest tube. 2. Bibasal subsegmental atelectasis. Signer Name: Giovanni Glynn MD Signed: 02/15/2019 1:25 PM Workstation Name: [id number]
[2019-02-15] MEDS: HYDROmorphone 1 MG/1 ML INJ IM PRN ×2 (17:17→20:32)
[2019-02-15] MEDS: ENOXAPARIN 40 MG/0.4 ML INJ SUB-Q SCH (17:18)
[2019-02-15] MEDS: ONDANSETRON 4 MG/2 ML INJ IV PRN ×2 (17:23→22:07)
[2019-02-16] MEDS: oxyCODONE /ACETAMINOPHEN 5-325MG TAB PO PRN ×3 (00:11→20:31)
[2019-02-16 05:06] LABS: Basophils % (Auto) 0.3 % (0.0-1.8); Eosinophils # (Auto) 0.1 K/mm3 (0.0-0.4); Eosinophils % (Auto) 1.7 % (0.0-4.3); Hematocrit 32.5 % (30.3-42.9); Hemoglobin 10.6 gm/dl (10.1-14.3); Lymphocytes # (Auto) 1.9 K/mm3 (1.2-5.4); Lymphocytes % (Auto) 40.1 % (13.4-35.0); Mean Corpuscular HGB Conc 33 % (30-34); Mean Corpuscular Volume 86 fl (79-97); Monocytes # (Auto) 0.5 K/mm3 (0.0-0.8); Monocytes % (Auto) 10.5 % (0.0-7.3); Platelet Count 187 K/mm3 (140-440); Red Cell Distribution Width 14.7 % (13.2-15.2)
[2019-02-16 05:19] LABS: BUN/Creatinine Ratio 9; Blood Urea Nitrogen 6 mg/dL (7-17); Calcium 8.2 mg/dL (8.4-10.2); Hemolysis Index 1
[2019-02-16] MEDS: diphenhydrAMINE 50 MG/ML VIAL IV PRN (05:40)
--- NOTE | 2019-02-16 08:46 | XRay Report ---
CHEST 1 VIEW INDICATION / CLINICAL INFORMATION: Pneumothorax s/p chest tube on 02/15. COMPARISON: 02/15/2019 FINDINGS: SUPPORT DEVICES: Smallbore right chest tube is again noted and appears unchanged in position. HEART / MEDIASTINUM: No significant abnormality. LUNGS / PLEURA: There is minimal residual basilar atelectasis.. Right pneumothorax has resolved in t he interval ADDITIONAL FINDINGS: No significant additional findings. IMPRESSION: 1. Right pneumothorax has resolved. Right pleural catheter is again noted and appears unchanged in po sition. Basilar atelectasis has improved as well. Signer Name: Al Reilly MD Signed: 02/16/2019 8:41 AM Workstation Name: [id number]
[2019-02-16] MEDS: ENOXAPARIN 40 MG/0.4 ML INJ SUB-Q SCH (09:08)
[2019-02-16] MEDS: NICOTINE 14 MG/24 HR PATCH TD SCH ×2 (09:08→09:16)
[2019-02-16] MEDS: HYDROmorphone 1 MG/1 ML INJ IM PRN ×3 (09:14→17:33)
--- NOTE | 2019-02-16 10:10 | Progress Note ---
Assessment and Plan Assessment and plan: Recurrent pneumothorax, suspected ROLLINS Active smoker - Patient has chest tube on the right chest - Pulmonary consult appreciated - Pulmonary is considering to transfer to a facility where cardiothoracic is available. DVT prophylaxis Disposition; continue inpatient care, will follow pulmonary recommendations History Interval history: Patient was seen and evaluated this morning, patient's chest pain and cough is getting better. Hospitalist Physical - Physical exam Narrative exam: Not in cardiopulmonary distress. The patient appeared well nourished and normally developed. Vital signs as documented. Head exam is unremarkable. No scleral icterus . Neck is without jugular venous distension, thyromegaly, or carotid bruits. Lungs chest tube in the right chest. Cardiac exam reveals regular rate and Rhythm. Abdominal exam reveals normal bowel sounds. Extremities are nonedematous and both femoral and pedal pulses are normal. [employer] [facility]: Alert and oriented 3. No focal weakness. - Constitutional Vitals: Temp Pulse Resp BP Pulse Ox 99.0 F 49 L 18 113/71 98 02/16/19 04:28 02/16/19 04:28 02/16/19 04:58 02/16/19 04:28 02/16/19 04:28 Results - Labs CBC & Chem 7: 02/16/19 04:28 02/16/19 04:28 Labs: Laboratory Last Values WBC 4.7 K/mm3 (4.5-11.0) 02/16/19 04:28 RBC 3.80 M/mm3 (3.65-5.03) 02/16/19 04:28 Hgb 10.6 gm/dl (10.1-14.3) 02/16/19 04:28 Hct 32.5 % (30.3-42.9) D 02/16/19 04:28 MCV 86 fl (79-97) 02/16/19 04:28 MCH 28 pg (28-32) 02/16/19 04:28 MCHC 33 % (30-34) 02/16/19 04:28 RDW 14.7 % (13.2-15.2) 02/16/19 04:28 Plt Count 187 K/mm3 (140-440) 02/16/19 04:28 Lymph % (Auto) 40.1 % (13.4-35.0) H 02/16/19 04:28 [place] % (Auto) 10.5 % (0.0-7.3) H 02/16/19 04:28 Eos % (Auto) 1.7 % (0.0-4.3) 02/16/19 04:28 Baso % (Auto) 0.3 % (0.0-1.8) 02/16/19 04:28 Lymph # 1.9 K/mm3 (1.2-5.4) 02/16/19 04:28 [place] # 0.5 K/mm3 (0.0-0.8) 02/16/19 04:28 Eos # 0.1 K/mm3 (0.0-0.4) 02/16/19 04:28 Baso # 0.0 K/mm3 (0.0-0.1) 02/16/19 04:28 Seg Neutrophils % 47.4 % (40.0-70.0) 02/16/19 04:28 Seg Neutrophils # 2.2 K/mm3 (1.8-7.7) 02/16/19 04:28 Sodium 137 mmol/L (137-145) 02/16/19 04:28 Potassium 4.1 mmol/L (3.6-5.0) 02/16/19 04:28 Chloride 106.3 mmol/L (98-107) 02/16/19 04:28 Carbon Dioxide 24 mmol/L (22-30) 02/16/19 04:28 11 mmol/L 02/16/19 04:28 BUN 6 mg/dL (7-17) L 02/16/19 04:28 0.7 mg/dL (0.7-1.2) 02/16/19 04:28 Estimated GFR > 60 ml/min 02/16/19 04:28 9 % 02/16/19 04:28 Glucose 104 mg/dL (65-100) H 02/16/19 04:28 Calcium 8.2 mg/dL (8.4-10.2) L 02/16/19 04:28 Active Medications - Current Medications Current Medications: Generic Name Dose Route Start Last Admin Trade Name Freq PRN Reason Stop Dose Admin Acetaminophen 650 mg 02/15/19 02:30 Tylenol PO Q4H PRN Pain MILD(1-3)/Fever >100.5/LIVE Diphenhydramine HCl 25 mg 02/16/19 05:25 02/16/19 05:40 Benadryl IV 25 mg Q6H PRN Administration Itching Enoxaparin Sodium 40 mg 02/15/19 10:00 02/16/19 09:08 Lovenox SUB-Q 40 mg QDAY REBECCA Administration Hydromorphone HCl 1 mg 02/15/19 16:03 02/16/19 09:14 Dilaudid IM 1 mg Q3H PRN Administration Pain , Severe (7-10) Nicotine 14 mg 02/15/19 10:00 02/16/19 09:16 Habitrol TD 14 mg QDAY REBECCA Administration Ondansetron HCl 4 mg 02/15/19 02:30 02/15/19 22:07 Zofran IV 4 mg Q8H PRN Administration Nausea And Vomiting Oxycodone/Acetaminophen 1 tab 02/15/19 02:30 02/16/19 04:58 Percocet 5/325 PO 1 tab Q6H PRN Administration Pain, Moderate (4-6) Sodium Chloride 10 ml 02/15/19 10:00 02/16/19 09:16 Sodium Chloride Flush Syringe 10 Ml IV 10 ml BID REBECCA Administration Sodium Chloride 10 ml 02/15/19 02:30 Sodium Chloride Flush Syringe 10 Ml IV PRN PRN LINE FLUSH
--- NOTE | 2019-02-16 12:25 | Event Note ---
Date: 02/16/19 2 things: 1. Long discussion with patient. She has now revealed that this PTX's happen with her menstral cycle. All of them. There is a phenomen called Catamenial PTX that is associated with endometrial tissue outside of the uterus. She is also a smoker and also a women of childbearing age. ROLLINS is still on the differential as well as smoking related Sponateous PTX. Long discussion about smoking cessation. May need a patch. 2. Spoke with Thoracic Surgery at [facility] [place] who will be happy to assist in care. Unfortunately, the surgeon is out of town until Wednesday. The plan will be to leave the patient on suction today. I repeated a CXR today pneumo has completely resolved. Will attempt HRCT on tomorrow so that she can have this for [facility]. If able to get her out over the weekend she will follow up in [facility] clinic next week for Vats and possible pleurodesis. If we are not able to keep the lung up, will get the patient transferred over to [facility] either Wednesday or Wednesday under the Care of Dr. Jose Angel Fung or Dr. Fabrizio Sood.
[2019-02-17] MEDS: HYDROmorphone 1 MG/1 ML INJ IM PRN ×4 (00:10→19:39)
[2019-02-17] MEDS: diphenhydrAMINE 50 MG/ML VIAL IV PRN ×2 (01:48→21:30)
[2019-02-17] MEDS: oxyCODONE /ACETAMINOPHEN 5-325MG TAB PO PRN ×3 (06:56→22:14)
--- NOTE | 2019-02-17 09:16 | XRay Report ---
CHEST 1 VIEW INDICATION / CLINICAL INFORMATION: PTX s/p chest tube now to water seal. COMPARISON: 02/16/2019 FINDINGS: SUPPORT DEVICES: Right pleural catheter appears unchanged HEART / MEDIASTINUM: Unchanged LUNGS / PLEURA: There is minimal basilar atelectasis.. There is a very tiny apical pneumothorax on t he right. ADDITIONAL FINDINGS: No significant additional findings. IMPRESSION: 1. There is a very tiny right apical pneumothorax. There is minimal basilar atelectasis. Signer Name: Al Reilly MD Signed: 02/17/2019 9:12 AM Workstation Name: [id number]
[2019-02-17] MEDS: NICOTINE 14 MG/24 HR PATCH TD SCH (10:00)
--- NOTE | 2019-02-17 10:00 | Progress Note ---
Assessment and Plan 28 y/o female with recurrent spontaneous pneumothorax (4th) either secondary to smoking, catamenial ptx or ROLLINS. 1. Increased oxygen to 4 liters this am 2. Continue off suction for now and repeat CXR at 12 noon 3. Will reevaluate wound/chest tube later today. Subjective Date of service: 02/17/19 Interval history: Took off suction, small apical PTX seen on film post removal from suction. In no distress. Girlfriend at bedside. Objective Vital Signs - 12hr 02/16/19 02/17/19 22:48 05:21 Temperature 98.4 F 98.3 F Pulse Rate 58 L 63 Respiratory 18 18 Rate Blood Pressure 104/64 120/67 O2 Sat by Pulse 99 79 L Oximetry CBC and BMP: 02/16/19 04:28 02/16/19 04:28 Abnormal lab findings: Abnormal Labs 02/14/19 02/14/19 02/15/19 20:33 20:33 08:26 MCH 27 L Lymph % (Auto) 42.6 H [place] % (Auto) 9.7 H Potassium 3.2 L BUN Glucose 116 H Calcium 8.2 L 02/16/19 02/16/19 04:28 04:28 MCH Lymph % (Auto) 40.1 H [place] % (Auto) 10.5 H Potassium BUN 6 L Glucose 104 H Calcium 8.2 L
[2019-02-17] MEDS: ENOXAPARIN 40 MG/0.4 ML INJ SUB-Q SCH (10:41)
[2019-02-17] MEDS: POLYETHYLENE GLYCOL 3350 17 GM POWDER PO PRN (12:18)
--- NOTE | 2019-02-17 12:59 | Progress Note ---
Assessment and Plan Assessment and plan: Recurrent pneumothorax, suspected ROLLINS Active smoker - Patient has chest tube on the right chest - Pulmonary consult appreciated - Pulmonary is considering to transfer to a facility where cardiothoracic is available. DVT prophylaxis Disposition; continue inpatient care, will follow pulmonary recommendations History Interval history: Patient was seen and evaluated this morning, still complaining of pain at the site of chest tube insertion. Patient still complaining itching around her rectum. Hospitalist Physical - Physical exam Narrative exam: Not in cardiopulmonary distress. The patient appeared well nourished and normally developed. Vital signs as documented. Head exam is unremarkable. No scleral icterus . Neck is without jugular venous distension, thyromegaly, or carotid bruits. Lungs chest tube in the right chest. Cardiac exam reveals regular rate and Rhythm. Abdominal exam reveals normal bowel sounds. Extremities are nonedematous and both femoral and pedal pulses are normal. 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 No focal weakness. - Constitutional Vitals: Temp Pulse Resp BP Pulse Ox 98.3 F 63 18 120/67 100 02/17/19 05:21 02/17/19 05:21 02/17/19 05:21 02/17/19 05:21 02/17/19 12:06 Results - Labs CBC & Chem 7: 02/16/19 04:28 02/16/19 04:28 Labs: Laboratory Last Values WBC 4.7 K/mm3 (4.5-11.0) 02/16/19 04:28 RBC 3.80 M/mm3 (3.65-5.03) 02/16/19 04:28 Hgb 10.6 gm/dl (10.1-14.3) 02/16/19 04:28 Hct 32.5 % (30.3-42.9) D 02/16/19 04:28 MCV 86 fl (79-97) 02/16/19 04:28 MCH 28 pg (28-32) 02/16/19 04:28 MCHC 33 % (30-34) 02/16/19 04:28 RDW 14.7 % (13.2-15.2) 02/16/19 04:28 Plt Count 187 K/mm3 (140-440) 02/16/19 04:28 Lymph % (Auto) 40.1 % (13.4-35.0) H 02/16/19 04:28 [place] % (Auto) 10.5 % (0.0-7.3) H 02/16/19 04:28 Eos % (Auto) 1.7 % (0.0-4.3) 02/16/19 04:28 Baso % (Auto) 0.3 % (0.0-1.8) 02/16/19 04:28 Lymph # 1.9 K/mm3 (1.2-5.4) 02/16/19 04:28 [place] # 0.5 K/mm3 (0.0-0.8) 02/16/19 04:28 Eos # 0.1 K/mm3 (0.0-0.4) 02/16/19 04:28 Baso # 0.0 K/mm3 (0.0-0.1) 02/16/19 04:28 Seg Neutrophils % 47.4 % (40.0-70.0) 02/16/19 04:28 Seg Neutrophils # 2.2 K/mm3 (1.8-7.7) 02/16/19 04:28 Sodium 137 mmol/L (137-145) 02/16/19 04:28 Potassium 4.1 mmol/L (3.6-5.0) 02/16/19 04:28 Chloride 106.3 mmol/L (98-107) 02/16/19 04:28 Carbon Dioxide 24 mmol/L (22-30) 02/16/19 04:28 11 mmol/L 02/16/19 04:28 BUN 6 mg/dL (7-17) L 02/16/19 04:28 0.7 mg/dL (0.7-1.2) 02/16/19 04:28 Estimated GFR > 60 ml/min 02/16/19 04:28 9 % 02/16/19 04:28 Glucose 104 mg/dL (65-100) H 02/16/19 04:28 Calcium 8.2 mg/dL (8.4-10.2) L 02/16/19 04:28 Active Medications - Current Medications Current Medications: Generic Name Dose Route Start Last Admin Trade Name Freq PRN Reason Stop Dose Admin Acetaminophen 650 mg 02/15/19 02:30 Tylenol PO Q4H PRN Pain MILD(1-3)/Fever >100.5/LIVE Diphenhydramine HCl 25 mg 02/16/19 05:25 02/17/19 01:48 Benadryl IV 25 mg Q6H PRN Administration Itching Enoxaparin Sodium 40 mg 02/15/19 10:00 02/17/19 10:41 Lovenox SUB-Q 40 mg QDAY REBECCA Administration Hydrocortisone Acetate 1 applic 02/17/19 14:00 Hydrocortisone Cr TP QID REBECCA Hydromorphone HCl 1 mg 02/15/19 16:03 02/17/19 12:31 Dilaudid IM 1 mg Q3H PRN Administration Pain , Severe (7-10) Nicotine 14 mg 02/15/19 10:00 02/17/19 10:00 Habitrol TD 14 mg QDAY REBECCA Administration Ondansetron HCl 4 mg 02/15/19 02:30 02/15/19 22:07 Zofran IV 4 mg Q8H PRN Administration Nausea And Vomiting Oxycodone/Acetaminophen 1 tab 02/15/19 02:30 02/17/19 06:56 Percocet 5/325 PO 1 tab Q6H PRN Administration Pain, Moderate (4-6) Polyethylene Glycol 17 gm 02/17/19 11:10 02/17/19 12:18 Miralax 3350 PO 17 gm BID PRN Administration CONSTIPATION Sodium Chloride 10 ml 02/15/19 10:00 02/17/19 10:42 Sodium Chloride Flush Syringe 10 Ml IV 10 ml BID REBECCA Administration Sodium Chloride 10 ml 02/15/19 02:30 02/17/19 12:33 Sodium Chloride Flush Syringe 10 Ml IV 10 ml PRN PRN Administration LINE FLUSH
--- NOTE | 2019-02-17 13:18 | XRay Report ---
CHEST 1 VIEW INDICATION / CLINICAL INFORMATION: Small apical PTX this am on Water seal, repeating. COMPARISON: 02/17/2019, 0855 hours FINDINGS: SUPPORT DEVICES: Right pleural catheter appears unchanged HEART / MEDIASTINUM: No significant abnormality. LUNGS / PLEURA: No significant pulmonary or pleural abnormality.. Right pneumothorax is increased in size ADDITIONAL FINDINGS: No significant additional findings. IMPRESSION: 1. Right pneumothorax is increased in size since earlier today. Signer Name: Al Reilly MD Signed: 02/17/2019 1:13 PM Workstation Name: [id number]
[2019-02-17] MEDS: HYDROCORTISONE 1% CREAM 28.4GM TP SCH ×3 (14:01→21:31)
[2019-02-18] MEDS: HYDROmorphone 1 MG/1 ML INJ IM PRN ×2 (03:20→13:35)
[2019-02-18] MEDS: diphenhydrAMINE 50 MG/ML VIAL IV PRN ×2 (05:21→14:26)
[2019-02-18] MEDS: POLYETHYLENE GLYCOL 3350 17 GM POWDER PO PRN (05:29)
[2019-02-18] MEDS: oxyCODONE /ACETAMINOPHEN 5-325MG TAB PO PRN ×2 (09:36→19:58)
[2019-02-18] MEDS: ENOXAPARIN 40 MG/0.4 ML INJ SUB-Q SCH (09:38)
[2019-02-18] MEDS: NICOTINE 14 MG/24 HR PATCH TD SCH (09:38)
--- NOTE | 2019-02-18 09:46 | XRay Report ---
CHEST 1 VIEW 9:08 AM INDICATION / CLINICAL INFORMATION: Chest tube management. COMPARISON: Yesterday. FINDINGS: SUPPORT DEVICES: The position of the right pleural catheter has not changed. HEART / MEDIASTINUM: No significant abnormality. LUNGS / PLEURA: No significant pulmonary or pleural abnormality. There is a tiny right apical pneumot horax which has decreased in size. ADDITIONAL FINDINGS: Right nipple piercing. IMPRESSION: Tiny right apical pneumothorax, smaller than on yesterday's study. Signer Name: Bulmaro Harkins MD Signed: 02/18/2019 9:42 AM Workstation Name: [id number]
[2019-02-18] MEDS: HYDROCORTISONE 1% CREAM 28.4GM TP SCH ×4 (11:00→23:03)
--- NOTE | 2019-02-18 13:03 | Progress Note ---
Assessment and Plan Assessment and plan: Recurrent pneumothorax, suspected ROLLINS Active smoker - Patient has chest tube on the right chest - Pulmonary consult appreciated - Pulmonary is considering to transfer to another facility or if the patient is getting better patient discharged and will follow as an outpatient - Chest x-ray from this morning showed tiny pneumothorax, improved from yesterday's chest x-ray DVT prophylaxis Disposition; continue inpatient care, will follow pulmonary recommendations History Interval history: Patient was seen and evaluated this morning, patient's complaining some itching where the tape is placed. Hospitalist Physical - Physical exam Narrative exam: Not in cardiopulmonary distress. The patient appeared well nourished and normally developed. Vital signs as documented. Head exam is unremarkable. No scleral icterus . Neck is without jugular venous distension, thyromegaly, or carotid bruits. Lungs chest tube in the right chest. Cardiac exam reveals regular rate and Rhythm. Abdominal exam reveals normal bowel sounds. Extremities are nonedematous and both femoral and pedal pulses are normal. 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 No focal weakness. - Constitutional Vitals: Temp Pulse Resp BP Pulse Ox 98.2 F 73 18 111/65 100 02/18/19 12:09 02/18/19 12:09 02/18/19 12:09 02/18/19 12:09 02/18/19 12:09 Results - Labs CBC & Chem 7: 02/16/19 04:28 02/16/19 04:28 Labs: Laboratory Last Values WBC 4.7 K/mm3 (4.5-11.0) 02/16/19 04:28 RBC 3.80 M/mm3 (3.65-5.03) 02/16/19 04:28 Hgb 10.6 gm/dl (10.1-14.3) 02/16/19 04:28 Hct 32.5 % (30.3-42.9) D 02/16/19 04:28 MCV 86 fl (79-97) 02/16/19 04:28 MCH 28 pg (28-32) 02/16/19 04:28 MCHC 33 % (30-34) 02/16/19 04:28 RDW 14.7 % (13.2-15.2) 02/16/19 04:28 Plt Count 187 K/mm3 (140-440) 02/16/19 04:28 Lymph % (Auto) 40.1 % (13.4-35.0) H 02/16/19 04:28 [place] % (Auto) 10.5 % (0.0-7.3) H 02/16/19 04:28 Eos % (Auto) 1.7 % (0.0-4.3) 02/16/19 04:28 Baso % (Auto) 0.3 % (0.0-1.8) 02/16/19 04:28 Lymph # 1.9 K/mm3 (1.2-5.4) 02/16/19 04:28 [place] # 0.5 K/mm3 (0.0-0.8) 02/16/19 04:28 Eos # 0.1 K/mm3 (0.0-0.4) 02/16/19 04:28 Baso # 0.0 K/mm3 (0.0-0.1) 02/16/19 04:28 Seg Neutrophils % 47.4 % (40.0-70.0) 02/16/19 04:28 Seg Neutrophils # 2.2 K/mm3 (1.8-7.7) 02/16/19 04:28 Sodium 137 mmol/L (137-145) 02/16/19 04:28 Potassium 4.1 mmol/L (3.6-5.0) 02/16/19 04:28 Chloride 106.3 mmol/L (98-107) 02/16/19 04:28 Carbon Dioxide 24 mmol/L (22-30) 02/16/19 04:28 11 mmol/L 02/16/19 04:28 BUN 6 mg/dL (7-17) L 02/16/19 04:28 0.7 mg/dL (0.7-1.2) 02/16/19 04:28 Estimated GFR > 60 ml/min 02/16/19 04:28 9 % 02/16/19 04:28 Glucose 104 mg/dL (65-100) H 02/16/19 04:28 Calcium 8.2 mg/dL (8.4-10.2) L 02/16/19 04:28 Active Medications - Current Medications Current Medications: Generic Name Dose Route Start Last Admin Trade Name Freq PRN Reason Stop Dose Admin Acetaminophen 650 mg 02/15/19 02:30 Tylenol PO Q4H PRN Pain MILD(1-3)/Fever >100.5/LIVE Diphenhydramine HCl 25 mg 02/16/19 05:25 02/18/19 05:21 Benadryl IV 25 mg Q6H PRN Administration Itching Enoxaparin Sodium 40 mg 02/15/19 10:00 02/18/19 09:38 Lovenox SUB-Q 40 mg QDAY REBECCA Administration Hydrocortisone Acetate 1 applic 02/17/19 14:00 02/17/19 21:31 Hydrocortisone Cr TP 1 applic QID REBECCA Administration Hydromorphone HCl 1 mg 02/15/19 16:03 02/18/19 03:20 Dilaudid IM 1 mg Q3H PRN Administration Pain , Severe (7-10) Nicotine 14 mg 02/15/19 10:00 02/18/19 09:38 Habitrol TD 14 mg QDAY REBECCA Administration Ondansetron HCl 4 mg 02/15/19 02:30 02/15/19 22:07 Zofran IV 4 mg Q8H PRN Administration Nausea And Vomiting Oxycodone/Acetaminophen 1 tab 02/15/19 02:30 02/18/19 09:36 Percocet 5/325 PO 1 tab Q6H PRN Administration Pain, Moderate (4-6) Polyethylene Glycol 17 gm 02/17/19 11:10 02/18/19 05:29 Miralax 3350 PO 17 gm BID PRN Administration CONSTIPATION Sodium Chloride 10 ml 02/15/19 10:00 02/18/19 09:40 Sodium Chloride Flush Syringe 10 Ml IV 10 ml BID REBECCA Administration Sodium Chloride 10 ml 02/15/19 02:30 02/17/19 12:33 Sodium Chloride Flush Syringe 10 Ml IV 10 ml PRN PRN Administration LINE FLUSH
--- NOTE | 2019-02-18 15:46 | Progress Note ---
Assessment and Plan 28 y/o female with recurrent spontaneous pneumothorax (4th) either secondary to smoking, catamenial ptx or ROLLINS. 1. Spoke with Dr. Sood at [facility] who is covering this weekend. He will accept the patient. Will need to call transfer line to look for bed. 2. Ordered PRN ibuprofen to see if this helps with pain. Will likely have to stop this in the next 48 hours given plan for surgery at [facility] next week. 3. No need for supplemental O2. But must continue chest tube to suction. Will continue to follow. Subjective Date of service: 02/18/19 Interval history: Unfortunately PTX got worse despite increasing the oxygen on Water seal. Placed back on suction and obtained re-expansion. Patient is frustrated as she wants to go home but understands why she cant. Also wants to try NSAIDs for pain. Objective Vital Signs - 12hr 02/18/19 02/18/19 02/18/19 05:35 08:41 12:09 Temperature 98.1 F 98.2 F Pulse Rate 64 73 Respiratory 20 18 Rate Blood Pressure 124/87 111/65 O2 Sat by Pulse 100 100 100 Oximetry CBC and BMP: 02/16/19 04:28 02/16/19 04:28 Abnormal lab findings: Abnormal Labs 02/14/19 02/14/19 02/15/19 20:33 20:33 08:26 MCH 27 L Lymph % (Auto) 42.6 H [place] % (Auto) 9.7 H Potassium 3.2 L BUN Glucose 116 H Calcium 8.2 L 02/16/19 02/16/19 04:28 04:28 MCH Lymph % (Auto) 40.1 H [place] % (Auto) 10.5 H Potassium BUN 6 L Glucose 104 H Calcium 8.2 L
[2019-02-18] MEDS: DOCUSATE SODIUM 100 MG CAP PO SCH (23:01)
[2019-02-18] MEDS: IBUPROFEN 800 MG TAB PO PRN (23:01)
[2019-02-18] MEDS: MAGNESIUM HYDROXIDE (MOM) ORAL LIQD UDC PO PRN (23:05)
[2019-02-19] MEDS: HYDROmorphone 1 MG/1 ML INJ IM PRN ×2 (06:59→12:55)
[2019-02-19] MEDS ORDERED: LACTULOSE ENEMA 1000 ML PR PRN (09:32)
[2019-02-19] MEDS: oxyCODONE /ACETAMINOPHEN 5-325MG TAB PO PRN ×2 (09:55→17:25)
[2019-02-19] MEDS: DOCUSATE SODIUM 100 MG CAP PO SCH ×2 (09:55→23:31)
[2019-02-19] MEDS: ENOXAPARIN 40 MG/0.4 ML INJ SUB-Q SCH (09:56)
[2019-02-19] MEDS: NICOTINE 14 MG/24 HR PATCH TD SCH (09:56)
[2019-02-19] MEDS: HYDROCORTISONE 1% CREAM 28.4GM TP SCH ×4 (10:03→23:33)
--- NOTE | 2019-02-19 10:08 | Progress Note ---
Assessment and Plan Assessment and plan: Recurrent pneumothorax X4, suspected ROLLINS Active smoker - Patient has chest tube on the right chest - Pulmonary consult appreciated - Pulmonary is considering to transfer to another facility - Chest x-ray from yesterday showed tiny pneumothorax, improved from previous chest x-ray Constipation - No BM with laxatives - Dulcolax suppository, lactulose suppository DVT prophylaxis Disposition; continue inpatient care, will follow pulmonary recommendations History Interval history: Patient was seen and evaluated this morning, patient's complaining of pain at the site of chest tube insertion. Tingling of the right upper extremity. Constipation Hospitalist Physical - Physical exam Narrative exam: Not in cardiopulmonary distress. The patient appeared well nourished and normally developed. Vital signs as documented. Head exam is unremarkable. No scleral icterus . Neck is without jugular venous distension, thyromegaly, or carotid bruits. Lungs chest tube in the right chest. Cardiac exam reveals regular rate and Rhythm. Abdominal exam reveals normal bowel sounds, mild distention. Extremities are nonedematous and both femoral and pedal pulses are normal. 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 No focal weakness. - Constitutional Vitals: Temp Pulse Resp BP Pulse Ox 98.8 F 52 L 18 97/58 99 02/19/19 04:49 02/19/19 04:49 02/19/19 06:59 02/19/19 04:49 02/19/19 04:49 Results - Labs CBC & Chem 7: 02/16/19 04:28 02/16/19 04:28 Labs: Laboratory Last Values WBC 4.7 K/mm3 (4.5-11.0) 02/16/19 04:28 RBC 3.80 M/mm3 (3.65-5.03) 02/16/19 04:28 Hgb 10.6 gm/dl (10.1-14.3) 02/16/19 04:28 Hct 32.5 % (30.3-42.9) D 02/16/19 04:28 MCV 86 fl (79-97) 02/16/19 04:28 MCH 28 pg (28-32) 02/16/19 04:28 MCHC 33 % (30-34) 02/16/19 04:28 RDW 14.7 % (13.2-15.2) 02/16/19 04:28 Plt Count 187 K/mm3 (140-440) 02/16/19 04:28 Lymph % (Auto) 40.1 % (13.4-35.0) H 02/16/19 04:28 [place] % (Auto) 10.5 % (0.0-7.3) H 02/16/19 04:28 Eos % (Auto) 1.7 % (0.0-4.3) 02/16/19 04:28 Baso % (Auto) 0.3 % (0.0-1.8) 02/16/19 04:28 Lymph # 1.9 K/mm3 (1.2-5.4) 02/16/19 04:28 [place] # 0.5 K/mm3 (0.0-0.8) 02/16/19 04:28 Eos # 0.1 K/mm3 (0.0-0.4) 02/16/19 04:28 Baso # 0.0 K/mm3 (0.0-0.1) 02/16/19 04:28 Seg Neutrophils % 47.4 % (40.0-70.0) 02/16/19 04:28 Seg Neutrophils # 2.2 K/mm3 (1.8-7.7) 02/16/19 04:28 Sodium 137 mmol/L (137-145) 02/16/19 04:28 Potassium 4.1 mmol/L (3.6-5.0) 02/16/19 04:28 Chloride 106.3 mmol/L (98-107) 02/16/19 04:28 Carbon Dioxide 24 mmol/L (22-30) 02/16/19 04:28 11 mmol/L 02/16/19 04:28 BUN 6 mg/dL (7-17) L 02/16/19 04:28 0.7 mg/dL (0.7-1.2) 02/16/19 04:28 Estimated GFR > 60 ml/min 02/16/19 04:28 9 % 02/16/19 04:28 Glucose 104 mg/dL (65-100) H 02/16/19 04:28 Calcium 8.2 mg/dL (8.4-10.2) L 02/16/19 04:28 Active Medications - Current Medications Current Medications: Generic Name Dose Route Start Last Admin Trade Name Freq PRN Reason Stop Dose Admin Acetaminophen 650 mg 02/15/19 02:30 Tylenol PO Q4H PRN Pain MILD(1-3)/Fever >100.5/LIVE Bisacodyl 10 mg 02/19/19 09:32 02/19/19 09:55 Dulcolax OR 10 mg QDAY PRN Administration constipation unrelieved by MOM Diphenhydramine HCl 25 mg 02/16/19 05:25 02/18/19 14:26 Benadryl IV 25 mg Q6H PRN Administration Itching Docusate Sodium 100 mg 02/18/19 23:00 02/19/19 09:55 Colace PO 100 mg BID REBECCA Administration Enoxaparin Sodium 40 mg 02/15/19 10:00 02/19/19 09:56 Lovenox SUB-Q Not Given QDAY [facility] Hydrocortisone Acetate 1 applic 02/17/19 14:00 02/18/19 23:03 Hydrocortisone Cr TP 1 applic QID [facility] Administration Hydromorphone HCl 1 mg 02/15/19 16:03 02/19/19 06:59 Dilaudid IM 1 mg Q3H PRN Administration Pain , Severe (7-10) Ibuprofen 800 mg 02/18/19 15:44 02/18/19 23:01 Ibuprofen PO 800 mg Q8H PRN Administration Pain, Mild (1-3) Lactulose 200 gm 02/19/19 09:32 Cephulac OR ONCE PRN Constipation Magnesium Hydroxide 30 ml 02/18/19 22:12 02/18/19 23:05 Milk Of Magnesia PO 30 ml QDAY PRN Administration Constipation Nicotine 14 mg 02/15/19 10:00 02/19/19 09:56 Habitrol TD 14 mg QDAY REBECCA Administration Ondansetron HCl 4 mg 02/15/19 02:30 02/15/19 22:07 Zofran IV 4 mg Q8H PRN Administration Nausea And Vomiting Oxycodone/Acetaminophen 1 tab 02/15/19 02:30 02/19/19 09:55 Percocet 5/325 PO 1 tab Q6H PRN Administration Pain, Moderate (4-6) Polyethylene Glycol 17 gm 02/17/19 11:10 02/18/19 05:29 Miralax 3350 PO 17 gm BID PRN Administration CONSTIPATION Sodium Chloride 10 ml 02/15/19 10:00 02/19/19 09:57 Sodium Chloride Flush Syringe 10 Ml IV 10 ml BID REBECCA Administration Sodium Chloride 10 ml 02/15/19 02:30 02/17/19 12:33 Sodium Chloride Flush Syringe 10 Ml IV 10 ml PRN PRN Administration LINE FLUSH
--- NOTE | 2019-02-19 12:59 | Event Note ---
Date: 02/19/19 Patient has been accepted by Dr. Fabrizio Sood at [facility]. I spoke wit the transfer line myself this morning. Unfortunately given her lack of funding, she cannot be transferred until tomorrow because her chart will have to go under utilization review. Per the transfer line they will work on funding for her. I told the patient today that the earliest she could be transferred would be tomorrow. She, nor her girlfriend are happy about this. I have made several attempts to explain this process and what is going on with her and they seem to understand but are still very frustrated with the hospital. Her dressing is stable and does not need to be changed at this time. She will need to be on suction and if possible be transported with suction as her lung will collapse on water seal. Today she is complaining of shoulder pain and numbness in her hands. She states that pain feels like her first PTX. Will order repeat film however, there is no evidence of airleak on the pleuravac.
--- NOTE | 2019-02-19 13:36 | XRay Report ---
CHEST 1 VIEW 02/19/2019 1:18 PM INDICATION / CLINICAL INFORMATION: Follow-up of right pneumothorax. Right shoulder pain. COMPARISON: One view of the chest from 02/18/2019. FINDINGS: SUPPORT DEVICES: Stable right chest tube. HEART / MEDIASTINUM: No significant abnormality. LUNGS / PLEURA: The right apical pneumothorax is larger and measures 2 cm in thickness at the apex of the right lung (previously 1.1 cm). No significant pulmonary abnormality or pleural effusion is seen . ADDITIONAL FINDINGS: No significant additional findings. IMPRESSION: Slightly larger right pneumothorax with stable positioning of the chest tube. Signer Name: Patrick Ramirez MD Signed: 02/19/2019 1:32 PM Workstation Name: [id number]
[2019-02-19] MEDS: MAGNESIUM HYDROXIDE (MOM) ORAL LIQD UDC PO PRN (17:25)
[2019-02-19] MEDS: IBUPROFEN 800 MG TAB PO PRN (23:34)
[2019-02-20] MEDS: HYDROmorphone 1 MG/1 ML INJ IM PRN ×4 (02:33→20:05)
[2019-02-20] MEDS: DOCUSATE SODIUM 100 MG CAP PO SCH ×2 (09:42→22:25)
[2019-02-20] MEDS: HYDROCORTISONE 1% CREAM 28.4GM TP SCH ×4 (09:45→22:27)
[2019-02-20] MEDS: ENOXAPARIN 40 MG/0.4 ML INJ SUB-Q SCH (09:46)
[2019-02-20] MEDS: NICOTINE 14 MG/24 HR PATCH TD SCH (10:40)
--- NOTE | 2019-02-20 10:40 | Discharge Summary ---
Providers - Providers Date of Admission: 02/15/19 02:30 Attending physician: MAIRA NAYLOR MD 02/15/19 01:12 Consult to Physician [CONS] Stat Comment: Dr. Ventura spoke with Dr. 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 She was found to have recurrent right pneumothorax, chest tube was placed. Given recurrent nature of her pneumothorax, it was unable to be resolved with chest tube. Therefore she was transferred to higher level institution where she can be seen by CT surgery for possible VATS procedure versus pleurodesis. Preventative health counseling performed for 17 minutes Tobacco abuse/dependence Smoking cessation counseling performed for 10 minutes, nicotine patches when necessary Diagnosis Recurrent pneumothorax Acute hypoxic respiratory failure Constipation Disposition: DC/- SHRT-TRM GEN HOSP IP Time spent for discharge: 33 mins Core Measure Documentation - Palliative Care Palliative Care/ Comfort Measures: Not Applicable - Core Measures Any of the following diagnoses?: none Exam - Constitutional Vitals: Temp Pulse Resp BP Pulse Ox 98.8 F 77 20 94/43 98 02/20/19 05:44 02/19/19 17:24 02/20/19 09:24 02/20/19 05:44 02/20/19 09:07 General appearance: Present: no acute distress, well-nourished - EENT Eyes: Present: PERRL ENT: hearing intact, clear oral mucosa - Neck Neck: Present: supple, normal ROM - Respiratory Respiratory effort: normal Respiratory: bilateral: CTA - Cardiovascular Heart Sounds: Present: S1 & S2. Absent: rub, click - Extremities Extremities: pulses symmetrical, No edema Peripheral Pulses: within normal limits - Abdominal General gastrointestinal: Present: soft, non-tender, non-distended, normal bowel sounds Female genitourinary: Present: normal - Integumentary Integumentary: Present: clear, warm, dry - Musculoskeletal Musculoskeletal: gait normal, strength equal bilaterally - Psychiatric Psychiatric: appropriate mood/affect, intact judgment & insight - Neurologic Neurologic: CNII-XII intact, moves all extremities Plan Follow up with: PRIMARY CARE, [Primary Care Provider] - 3-5 Days
[2019-02-20] MEDS: IBUPROFEN 800 MG TAB PO PRN ×2 (11:42→22:25)
--- NOTE | 2019-02-20 16:09 | Progress Note ---
Assessment and Plan Imp: 1. Spontaneous PTX, recurrent, and seemingly menstruation-related; r/o thoracic endometriosis 2. Chest pain due to #1 and chest tube 3. Nicotine dependence, cigarettes, in remission 4. Hypokalemia, better Rec: 1. Chest tube is tidaling; + small air leak; leave to suction pending transfer to [place]; will f/u CXR PRN 2. Patient states she has quit smoking 3. Has had PTX x several episodes; definitely needs VATS w/ pleurodesis and ble bectomy, inspection for thoracic endometriosis, and probable wedge lung biopsy to r/o ROLLINS although there is no stigmata of such on CT chest 4. DVT PPx 5. Pain control 6. Will follow Plan of care reviewed w/ patient, she understands/agrees Subjective Date of service: 02/20/19 Principal diagnosis: PTX Interval history: No events. Awake, alert. SOB stable. C/o chest pain at chest tube site. No new complaints except anxious to be transferred. Active Medications Acetaminophen (Tylenol) 650 mg PO Q4H PRN PRN Reason: Pain MILD(1-3)/Fever >100.5/LIVE Bisacodyl (Dulcolax) 10 mg [place] QDAY PRN PRN Reason: constipation unrelieved by MOM Last Admin: 02/19/19 09:55 Dose: 10 mg Documented by: Diphenhydramine HCl (Benadryl) 25 mg IV Q6H PRN PRN Reason: Itching Last Admin: 02/18/19 14:26 Dose: 25 mg Documented by: Docusate Sodium (Colace) 100 mg PO BID [facility] Last Admin: 02/20/19 09:42 Dose: 100 mg Documented by: Enoxaparin Sodium (Lovenox) 40 mg SUB-Q QDAY [facility] Last Admin: 02/20/19 09:46 Dose: 40 mg Documented by: Hydrocortisone Acetate (Hydrocortisone Cr) 1 applic TP QID [facility] Last Admin: 02/20/19 09:45 Dose: 1 applic Documented by: Hydromorphone HCl (Dilaudid) 1 mg IM Q3H PRN PRN Reason: Pain , Severe (7-10) Last Admin: 02/20/19 14:16 Dose: 1 mg Documented by: Ibuprofen (Ibuprofen) 800 mg PO Q8H PRN PRN Reason: Pain, Mild (1-3) Last Admin: 02/20/19 11:42 Dose: 800 mg Documented by: Lactulose (Cephulac) 200 gm [place] ONCE PRN PRN Reason: Constipation Magnesium Hydroxide (Milk Of Magnesia) 30 ml PO QDAY PRN PRN Reason: Constipation Last Admin: 02/19/19 17:25 Dose: 30 ml Documented by: Nicotine (Habitrol) 14 mg TD QDAY [facility] Last Admin: 02/20/19 10:40 Dose: 14 mg Documented by: Ondansetron HCl (Zofran) 4 mg IV Q8H PRN PRN Reason: Nausea And Vomiting Last Admin: 02/15/19 22:07 Dose: 4 mg Documented by: Oxycodone/Acetaminophen (Percocet 5/325) 1 tab PO Q6H PRN PRN Reason: Pain, Moderate (4-6) Last Admin: 02/19/19 17:25 Dose: 1 tab Documented by: Polyethylene Glycol (Miralax 3350) 17 gm PO BID PRN PRN Reason: CONSTIPATION Last Admin: 02/18/19 05:29 Dose: 17 gm Documented by: Sodium Chloride (Sodium Chloride Flush Syringe 10 Ml) 10 ml IV BID [facility] Last Admin: 02/20/19 14:17 Dose: 10 ml Documented by: Sodium Chloride (Sodium Chloride Flush Syringe 10 Ml) 10 ml IV PRN PRN PRN Reason: LINE FLUSH Last Admin: 02/17/19 12:33 Dose: 10 ml Documented by: Objective Vital Signs - 12hr 02/20/19 02/20/19 02/20/19 05:44 09:07 09:24 Temperature 98.8 F Pulse Rate Respiratory 16 20 Rate Blood Pressure 94/43 O2 Sat by Pulse 98 Oximetry 02/20/19 11:34 Temperature 98.7 F Pulse Rate 72 Respiratory 19 Rate Blood Pressure 109/63 O2 Sat by Pulse 100 Oximetry Constitutional: no acute distress, alert Eyes: non-icteric ENT: oropharynx moist Neck: supple Effort: normal Ascultation: Bilateral: clear Cardiovascular: regular rate and rhythm (no mrg) Gastrointestinal: normoactive bowel sounds, soft, non-tender, non-distended Integumentary: normal Extremities: no cyanosis, no edema, pink and warm Neurologic: normal mental status, non-focal exam, pupils equal and round, CN II- XII normal Psychiatric: mood appropriate, affect normal CBC and BMP: 02/16/19 04:28 02/16/19 04:28 Abnormal lab findings: Abnormal Labs 02/14/19 02/14/19 02/15/19 20:33 20:33 08:26 MCH 27 L Lymph % (Auto) 42.6 H [place] % (Auto) 9.7 H Potassium 3.2 L BUN Glucose 116 H Calcium 8.2 L 02/16/19 02/16/19 04:28 04:28 MCH Lymph % (Auto) 40.1 H [place] % (Auto) 10.5 H Potassium BUN 6 L Glucose 104 H Calcium 8.2 L Chest x-ray: report reviewed, image reviewed CT scan - chest: report reviewed, image reviewed
[2019-02-20] MEDS: oxyCODONE /ACETAMINOPHEN 5-325MG TAB PO PRN (17:51)
[2019-02-20 23:33] VITALS: BP 102/52
[2019-02-21] MEDS: HYDROmorphone 1 MG/1 ML INJ IM PRN (00:31)
== END 2019-02-21 01:20 | disposition short-term general hospital (02) | DRG 201 ==
LOC: ED 20:02 → 3A 02-15 02:30
PROVIDERS: ADMIT Internal Medicine; ATTEND Internal Medicine
PROC: 0W9930Z Drainage of Right Pleural Cavity with Drainage Device, Percutaneous Approach (ICD-10-PCS; principal; 2019-02-15)
DX: J93.83 Other pneumothorax (principal); E87.6 Hypokalemia; Z71.6 Tobacco abuse counseling; F17.210 Nicotine dependence, cigarettes, uncomplicated
CPT/HCPCS: 36415; 71045; 71046; 71250; 80048; 85025; 87116; 94760; 96361; 96374; 96375; 99406; G0378; A6250; J1170; J1200; J1650; J2250; J2270; J2405; J2704; J3010; J7030